=== PATIENT | female | born 1950 | race Caucasian/White ===

== ENCOUNTER 2022-08-19 11:25 | Inpatient (IN) | payer MEDICARE, MEDICAID ==
[~2022-08-19] VITALS: Ht 160 cm; Wt 73.0 kg
[~2022-08-19 11:25] MED LIST: ACET-1025 PO; ADV50100 IH; AMLO2.5T2 PO; ASCO500C18 PO; BUDE10.2 INH; BUSP10TA11 PO; ESCI10TA PO; FERR325T28 PO; FLUT1BLS16; GUAI100L37 PO; HYDR-3965 PO; INSU100I78 SUBCUT; IPRA3AMP31 IH; LANTUS SQ; LIDO1ADH19 TOP; LORA-269 PO; MONT-40 PO; NITR1PAT63 TD; NYST15CR37 TOP; PANT-47 PO; PRED5TAB PO; ROFL500T7 PO; ROSU20TA2 PO; SENN-263 PO; SUCR1TAB PO; TAM50T PO
[2022-08-19] MEDS ORDERED: methylPREDNISolone sod succ 125mg/2ml vial IV ONE (11:30)
[2022-08-19 12:07] LABS: BASOPHILS % (AUTO) 0.1 % (0-1); EOSINOPHILS % (AUTO) 0 % (0-6); HEMATOCRIT 31.3 % (35.0-45.0); HEMOGLOBIN 9.5 g/dl (12.0-16.0); LYMPHOCYTES # (AUTO) 0.2 X10'3 (1.1-4.8); LYMPHOCYTES % (AUTO) 1.9 % (21-51); MEAN CORPUSCULAR HEMOGLOBIN 23.7 PG (27.0-31.0); MEAN CORPUSCULAR HGB CONC 30.5 g/dL (33.0-36.5); MEAN CORPUSCULAR VOLUME 77.9 FL (78-98); MONOCYTES # (AUTO) 0.1 X10'3 (0-0.9); NEUTROPHILS # (AUTO) 11.6 X10'3 (1.8-7.7); PLATELET COUNT 388 X10'3 (140-440); RED BLOOD COUNT 4.01 X10'6 (4.20-5.60); RED CELL DISTRIBUTION WIDTH 18.4 % (11.5-14.5)
[2022-08-19 12:20] LABS: ALANINE AMINOTRANSFERASE 22 U/L (12-78); ALBUMIN 2.6 G/DL (3.4-5.0); ALBUMIN/GLOBULIN RATIO 0.6 (1.1-1.5); ALKALINE PHOSPHATASE 93 IU/L (46-116); ANION GAP 5 (8-16); ASPARTATE AMINO TRANSFERASE 13 U/L (10-37); BILIRUBIN,TOTAL 0.3 MG/DL (0.1-1.0); BLOOD UREA NITROGEN 22 MG/DL (7-18); BUN/CREATININE RATIO 25.6 (10.0-20.0); CALCIUM 9.1 MG/DL (8.5-10.1); CHLORIDE 98 MMOL/L (99-107); CREATININE 0.86 MG/DL (0.40-0.90); GLUCOSE 185 MG/DL (70-104); SODIUM 140 MMOL/L (135-145); TOTAL CARBON DIOXIDE 37.3 MMOL/L (24-32); eGFR 65 ML/MIN
[2022-08-19 12:26] LABS: POTASSIUM 2.9 MMOL/L (3.5-5.1)
[2022-08-19 13:34] LABS: ABG BASE EXCESS 9.9 mmol/L (-2.0-2.0); ABG HCO3 35.9 mmol/L (22.0-26.0); ABG OXYGEN SATURATION 90.7 % (94-97); ABG PCO2 (T) 57.7 mmHg (32.0-45.0); ABG PO2 (T) 62.6 mmHg (75.0-100.0); ALLEN'S TEST POSITIVE; FCOHb 0.9 % (0.0-3.9); FLOW 65 L/min; FMetHb 0.3 % (0.0-1.5); FO2Hb 89.6 % (94-97); PATIENT TEMPERATURE 37.6; TOTAL HEMOGLOBIN 10.6 G/dl (12.0-16.0)
[2022-08-19] MEDS ORDERED: ondansetron/PF 4mg/2ml inj IV PRN (14:50)
[2022-08-19] MEDS ORDERED: magnesium hydroxide 30ml (MOM) UD suspension PO PRN (14:50)
[2022-08-19] MEDS ORDERED: acetaminophen 325mg tablet PO PRN (14:50)
[2022-08-19] MEDS ORDERED: magnesium Cl slow-release 64mg tablet PO PRN (14:50)
[2022-08-19] MEDS ORDERED: magnesium 2GM in 50ml NS 50 ML IV PRN (14:50)
[2022-08-19] MEDS ORDERED: potassium Cl 40MEQ/1/2NS 520ml 520 ML IV PRN (14:50)
[2022-08-19] MEDS ORDERED: magnesium 4gm in 100ml NS 100 ML IV PRN (14:50)
[2022-08-19] MEDS ORDERED: mag hydrox/Alum hydrox/simeth 30ml oral suspension PO PRN (14:50)
[2022-08-19] MEDS: potassium Cl 20 mEq SR tablet PO PRN ×2 (15:04→22:30)
[2022-08-19] MEDS ORDERED: MELA3TAB39 PO (15:06)
[2022-08-19] MEDS ORDERED: POTA-207 PO (15:06)
[2022-08-19] MEDS ORDERED: ESCI-8 PO (15:06)
[2022-08-19] MEDS ORDERED: HYDR-3927 PO (15:06)
[2022-08-19] MEDS ORDERED: LISI40TA13 PO (15:06)
[2022-08-19] MEDS ORDERED: AMLO5TAB PO (15:06)
[2022-08-19] MEDS ORDERED: FURO40TA4 PO (15:06)
[2022-08-19] MEDS ORDERED: CHOL500050 PO (15:06)
[2022-08-19] MEDS ORDERED: PRED10TA PO (15:06)
[2022-08-19] MEDS: levoFLOXACIN-Levaquin 500mg/D5 100 ML IV SCH (15:06)
[2022-08-19] MEDS ORDERED: ALBU18HF2 PO (15:06)
[2022-08-19] MEDS ORDERED: OXYB-58 PO (15:06)
[2022-08-19] MEDS ORDERED: LORA-268 PO (15:06)
[2022-08-19] MEDS ORDERED: LORA10TA7 PO (15:06)
[2022-08-19] MEDS ORDERED: DAPA10TA PO (15:07)
--- NOTE | 2022-08-19 15:59 | NUR ---
pt given snack and phone - denies additional needs at this time.
[2022-08-19] MEDS: ipratropium/albuterol 3ml nebule NEB SCH ×3 (16:21→23:25)
--- NOTE | 2022-08-19 17:32 | NUR ---
LATHA BAKER AT BEDSIDE
--- NOTE | 2022-08-19 18:07 | NUR ---
pt eating dinner
[2022-08-19 18:19] LABS: HEMOGLOBIN A1C 6.2 % (4.5-6.2)
--- NOTE | 2022-08-19 19:10 | NUR ---
attempted to call report to floor nurse, nurse unavailable will call in 5-10 minutes
[2022-08-19] MEDS ORDERED: guaiFENesin 200 MG/10 ML oral syrup UD cup PO PRN (20:00)
[2022-08-19] MEDS ORDERED: non-formulary drug (Budesonide/Formoterol Fumarate (Symbicort 160-4.5 Mcg Inhaler) 2 PUFFS INH SCH (20:00)
[2022-08-19] MEDS ORDERED: sennosides 8.6mg tablet PO PRN (20:00)
[2022-08-19] MEDS ORDERED: ipratropium/albuterol 3ml nebule IH PRN (20:00)
[2022-08-19] MEDS ORDERED: LORazepam 0.5 MG tablet PO PRN (20:00)
[2022-08-19] MEDS ORDERED: HYDROcodone/acetaminophen 5mg/325mg tablet PO PRN (20:00)
[2022-08-19] MEDS: K and/or MAG REPLACEMENT MC SCH (20:00)
[2022-08-19] MEDS ORDERED: non-formulary drug (Acetaminophen (Tylenol Extra Strength) 1 TAB) PO PRN (20:00)
[2022-08-19] MEDS ORDERED: hydrOXYzine 25 MG tablet PO PRN (20:00)
[2022-08-19] MEDS ORDERED: PERFLUTREN PROTEIN-A MICROSPHR (Optison) 0.22 MG/ML 3ML VIAL IV ONE (20:05)
[2022-08-19] MEDS ORDERED: insulin glargine (Lantus) pen - multi-dose SQ SCH (21:00)
[2022-08-19] MEDS: furosemide 10 MG/1 ML 10ml inj IV SCH (22:28)
[2022-08-19] MEDS: ascorbic acid 500mg tablet PO SCH (22:29)
[2022-08-19] MEDS: methylPREDNISolone sod succ 125mg/2ml vial IV SCH (22:29)
[2022-08-19] MEDS: docusate sod 100mg capsule PO SCH (22:29)
[2022-08-19] MEDS: sucralfate 1 gm tablet PO SCH (22:29)
[2022-08-19] MEDS: ferrous sulfate 325mg tablet PO SCH (22:29)
[2022-08-19] MEDS: busPIRone 5mg tablet PO SCH (22:29)
[2022-08-19] MEDS: flecainide 50mg tablet PO SCH (22:40)
[2022-08-20] VITALS (7 sets, daily range): BP systolic 91–126; BP diastolic 42–67
[2022-08-20] MEDS ORDERED: albuterol 2.5 MG/3 ML nebule NEB SCH (02:00)
[2022-08-20] MEDS: ipratropium/albuterol 3ml nebule NEB SCH ×6 (02:05→23:00)
[2022-08-20 02:14] LABS: BASOPHILS # (AUTO) 0.1 X10'3 (0-0.2); BASOPHILS % (AUTO) 0.8 % (0-1); EOSINOPHILS % (AUTO) 0 % (0-6); HEMATOCRIT 30.5 % (35.0-45.0); HEMOGLOBIN 9.3 g/dl (12.0-16.0); LYMPHOCYTES # (AUTO) 0.5 X10'3 (1.1-4.8); LYMPHOCYTES % (AUTO) 3.2 % (21-51); MEAN CORPUSCULAR HGB CONC 30.6 g/dL (33.0-36.5); MEAN CORPUSCULAR VOLUME 78.3 FL (78-98); MEAN PLATELET VOLUME 6.8 FL (7.4-10.4); MONOCYTES # (AUTO) 0.6 X10'3 (0-0.9); MONOCYTES % (AUTO) 3.9 % (2-12); NEUTROPHILS # (AUTO) 14.1 X10'3 (1.8-7.7); NEUTROPHILS % (AUTO) 92.1 % (42-75); PLATELET COUNT 387 X10'3 (140-440); RED BLOOD COUNT 3.89 X10'6 (4.20-5.60); RED CELL DISTRIBUTION WIDTH 18.2 % (11.5-14.5); WHITE BLOOD COUNT 15.3 X10'3 (4.5-11.0)
--- NOTE | 2022-08-20 02:22 | NUR ---
found patient short of breath, o2 module was alarming cannot reach target flow, O2 sat 71%, rapid response called, repositioned patient, adjusted High flow nc in nose, O sats came up to 94-95 %f after a about 2 minutes. patient placed on continuous oximetry
[2022-08-20 02:23] LABS: ALBUMIN 2.6 G/DL (3.4-5.0); ANION GAP 0 (8-16); BLOOD UREA NITROGEN 31 MG/DL (7-18); BUN/CREATININE RATIO 39.7 (10.0-20.0); CALCIUM 9.2 MG/DL (8.5-10.1); CHLORIDE 99 MMOL/L (99-107); CREATININE 0.78 MG/DL (0.40-0.90); GLUCOSE 171 MG/DL (70-104); MAGNESIUM 2.3 MG/DL (1.5-2.4); POTASSIUM 3.2 MMOL/L (3.5-5.1); SODIUM 142 MMOL/L (135-145); eGFR 73 ML/MIN
[2022-08-20 02:24] LABS: TOTAL CARBON DIOXIDE 42.6 MMOL/L (24-32)
--- NOTE | 2022-08-20 02:39 | NUR ---
co2 came back at 42.6%, Dr. Lee notified.
[2022-08-20] MEDS: potassium Cl 20 mEq SR tablet PO PRN ×4 (03:51→17:14)
[2022-08-20] MEDS: methylPREDNISolone sod succ 125mg/2ml vial IV SCH ×4 (03:51→19:29)
--- NOTE | 2022-08-20 05:50 | NUR ---
Patient refuses to wear scd's.
--- NOTE | 2022-08-20 06:24 | NUR ---
Patient report given, questions answered & plan of care reviewed with SAMUEL Danielle
[2022-08-20] MEDS: budesonide 0.5mg/2ml UD nebule IH SCH ×2 (07:19→20:58)
[2022-08-20] MEDS: ROSUVASTATIN CALCIUM 5 MG TABLET PO SCH (08:00)
[2022-08-20] MEDS: nitroGLYCERIN 0.2mg/hour patch TD SCH (08:00)
[2022-08-20] MEDS: ROFLUMILAST 250 MG PO SCH (08:00)
[2022-08-20] MEDS: K and/or MAG REPLACEMENT MC SCH ×2 (08:00→19:34)
[2022-08-20] MEDS: sucralfate 1 gm tablet PO SCH ×4 (08:00→21:11)
[2022-08-20] MEDS: docusate sod 100mg capsule PO SCH ×2 (08:00→19:34)
--- NOTE | 2022-08-20 08:58 | NUR ---
Patient in room [facility] 3013. I have received report from Lolis BAKER and had the opportunity to ask questions and assume patient care. Addendum: 08/20/22 at 0858 by Angie Escobar RN Amended: Links added.
[2022-08-20] MEDS: levoFLOXACIN-Levaquin 500mg/D5 100 ML IV SCH (09:34)
[2022-08-20] MEDS: furosemide 10 MG/1 ML 10ml inj IV SCH ×2 (09:34→19:41)
[2022-08-20] MEDS: flecainide 50mg tablet PO SCH ×2 (10:08→19:28)
[2022-08-20] MEDS: pantoprazole 40mg Tablet.DR PO SCH (10:08)
[2022-08-20] MEDS: ferrous sulfate 325mg tablet PO SCH ×2 (10:09→19:28)
[2022-08-20] MEDS: busPIRone 5mg tablet PO SCH ×3 (10:09→21:11)
[2022-08-20] MEDS: loratadine 10mg tablet PO SCH (10:09)
[2022-08-20] MEDS: montelukast 10mg tablet PO SCH (10:10)
[2022-08-20] MEDS: ascorbic acid 500mg tablet PO SCH ×2 (10:11→19:28)
[2022-08-20] MEDS: cholecalciferol (vitamin D3) 1,000 unit (25mcg) tablet PO SCH (10:11)
[2022-08-20 10:12] LABS: ABG BASE EXCESS 17.8 mmol/L (-2.0-2.0); ABG HCO3 44.5 mmol/L (22.0-26.0); ABG OXYGEN SATURATION 95.5 % (94-97); ABG PCO2 (T) 64.8 mmHg (32.0-45.0); ALLEN'S TEST POSITIVE; FCOHb 0.3 % (0.0-3.9); FLOW 40 L/min; FMetHb 0.2 % (0.0-1.5); TOTAL HEMOGLOBIN 10.8 G/dl (12.0-16.0)
[2022-08-20] MEDS: ESCITALOPRAM OXALATE 5 MG TABLET PO SCH (10:12)
[2022-08-20] MEDS: oxybutynin 5mg tablet PO SCH (10:12)
[2022-08-20] MEDS: lisinopril 20mg tablet PO SCH (12:01)
[2022-08-20] MEDS: amLODIPine 5mg tablet PO SCH (12:02)
--- NOTE | 2022-08-20 12:40 | NUR ---
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 Pt reports 24-33 pounds wt loss per RN Malnutrition Screen; pending scaled wt this admit w/ no prior scaled wt hx in EMR. Pt seen by RD at bedside; pt is poor historian unsure of UBW reports possibly ~160 pounds which is current reported wt in EMR. Pt unsure if wt loss and unable to provide concrete hx of decreased intake INVOICE CLERK during RD visit. Pt PO 100% first documented heart healthy meal this AM, no edema/wounds, and no visible signs of wasting evident during RD visit. Lacks minimum malnutrition criteria at this time. Pt does request chocolate Ensure during RD visit; RD notified RN recommends chocolate Ensure High Protein once daily if MD agreeable given initial PO acceptance-pending orders in EMR. Pt does report dislikes milk to drink, peas, and prefers sodas BIDLD; dietary notified. Will monitor for further malnutrition criteria this admit. Addendum: 08/20/22 at [address] Amended: Links added. 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 Pt reports 24-33 pounds wt loss per RN Malnutrition Screen; pending scaled wt this admit w/ no prior scaled wt hx in EMR. Pt seen by RD at bedside; pt is poor historian unsure of UBW reports possibly ~160 pounds which is current reported wt in EMR. Pt unsure if wt loss and unable to provide concrete hx of decreased intake INVOICE CLERK during RD visit. Pt PO 100% first documented heart healthy meal this AM, no edema/wounds, and no visible signs of wasting evident during RD visit. Lacks minimum malnutrition criteria at this time. Pt does request chocolate Ensure during RD visit; RD notified RN recommends chocolate Ensure High Protein once daily if MD agreeable given initial PO acceptance-pending orders in EMR. Pt does report dislikes milk to drink, peas, and prefers sodas BIDLD; dietary notified. Will monitor for further malnutrition criteria this admit. Rec: 1. continue heart healthy diet per MD; carb restriction not indicated given A1C 6.2% 2. Chocolate Ensure High Protein once daily if physician agreeable; frequency and ONS adjustments based on further PO trends
[2022-08-20] MEDS: DAPAGLIFLOZIN 10MG TABLET PO SCH (13:30)
[2022-08-20] MEDS ORDERED: acetaZOLAMIDE 250mg tablet PO ONE (15:20)
--- NOTE | 2022-08-20 16:58 | NUR ---
PAGER ID: [phone] MESSAGE: [phone] Rodrigo. Can I put her on DM protocol? DM2 HX. BS 180 now. Angie CAMARGO
[2022-08-20] MEDS ORDERED: dextrose 50%-water 50ml dispensing syringe IV PRN ×2 (17:20)
[2022-08-20] MEDS ORDERED: DEXTROSE 15 GM of carb/4 tabs (each vial/BOTTLE has 4 tablets) PO PRN ×2 (17:20)
[2022-08-20] MEDS ORDERED: glucagon, human recombinant 1mg kit SUBCUT PRN (17:20)
--- NOTE | 2022-08-20 18:10 | NUR ---
Problems reprioritized. Patient report given, questions answered & plan of care reviewed with Sahara BAKER. Pt eating dinner. High flow in place. 35L 55 fio2. Call light in reach. Addendum: 08/20/22 at 1840 by Angie Escobar RN Amended: Links added.
[2022-08-20] MEDS: acetaZOLAMIDE 500mg capsule.SA PO SCH (19:28)
[2022-08-20] MEDS: insulin Lispro (HumaLOG) vial - multi-dose SQ SCH (19:36)
[2022-08-20] MEDS: insulin glargine (Lantus) pen - multi-dose SQ SCH (21:18)
[2022-08-21] MEDS ORDERED: LidoCAINE 2% Topical Jelly 11mL syringe TOP ONE (00:55)
[2022-08-21] MEDS: methylPREDNISolone sod succ 125mg/2ml vial IV SCH ×4 (01:02→19:28)
[2022-08-21 02:00] VITALS: BP 108/64
[2022-08-21] MEDS: ipratropium/albuterol 3ml nebule NEB SCH ×6 (03:01→23:20)
[2022-08-21 06:00] VITALS: BP 106/75
--- NOTE | 2022-08-21 06:41 | NUR ---
Patient report given, questions answered & plan of care reviewed with SAMUEL Adams
--- NOTE | 2022-08-21 06:42 | NUR ---
Patient in room [facility] 3013. I have received report from Sahara BAKER and had the opportunity to ask questions and assume patient care.Pt awake and hungery. Call light in reach. Addendum: 08/21/22 at 0642 by Angie Escobar RN Amended: Links added.
[2022-08-21] MEDS: budesonide 0.5mg/2ml UD nebule IH SCH ×2 (07:15→18:52)
[2022-08-21] MEDS: docusate sod 100mg capsule PO SCH ×2 (08:00→19:17)
[2022-08-21] MEDS: ROFLUMILAST 250 MG PO SCH (08:00)
[2022-08-21] MEDS: K and/or MAG REPLACEMENT MC SCH ×2 (08:00→20:00)
[2022-08-21] MEDS: levoFLOXACIN-Levaquin 500mg/D5 100 ML IV SCH (08:27)
[2022-08-21] MEDS: montelukast 10mg tablet PO SCH (08:27)
[2022-08-21] MEDS: flecainide 50mg tablet PO SCH ×2 (08:28→19:28)
[2022-08-21] MEDS: pantoprazole 40mg Tablet.DR PO SCH (08:28)
[2022-08-21] MEDS: ferrous sulfate 325mg tablet PO SCH ×2 (08:29→19:28)
[2022-08-21] MEDS: sucralfate 1 gm tablet PO SCH ×4 (08:29→21:06)
[2022-08-21] MEDS: lisinopril 20mg tablet PO SCH (08:29)
[2022-08-21] MEDS: loratadine 10mg tablet PO SCH (08:29)
[2022-08-21] MEDS: busPIRone 5mg tablet PO SCH ×3 (08:29→21:06)
[2022-08-21] MEDS: ESCITALOPRAM OXALATE 5 MG TABLET PO SCH (08:30)
[2022-08-21] MEDS: oxybutynin 5mg tablet PO SCH (08:32)
[2022-08-21] MEDS: cholecalciferol (vitamin D3) 1,000 unit (25mcg) tablet PO SCH (08:33)
[2022-08-21] MEDS: ascorbic acid 500mg tablet PO SCH ×2 (08:33→19:27)
[2022-08-21] MEDS: DAPAGLIFLOZIN 10MG TABLET PO SCH (08:33)
[2022-08-21] MEDS: acetaZOLAMIDE 500mg capsule.SA PO SCH (08:34)
[2022-08-21] MEDS: ROSUVASTATIN CALCIUM 5 MG TABLET PO SCH (08:35)
[2022-08-21] MEDS: amLODIPine 5mg tablet PO SCH (08:35)
[2022-08-21] MEDS: furosemide 10 MG/1 ML 10ml inj IV SCH ×2 (08:38→19:27)
[2022-08-21] MEDS: insulin Lispro (HumaLOG) vial - multi-dose SQ SCH ×3 (08:47→19:12)
[2022-08-21 08:49] LABS: BASOPHILS % (AUTO) 0 % (0-1); EOSINOPHILS % (AUTO) 0 % (0-6); LYMPHOCYTES # (AUTO) 0.4 X10'3 (1.1-4.8); LYMPHOCYTES % (AUTO) 2.5 % (21-51); MEAN PLATELET VOLUME 7.4 FL (7.4-10.4); MONOCYTES # (AUTO) 0.4 X10'3 (0-0.9); MONOCYTES % (AUTO) 2.8 % (2-12); NEUTROPHILS # (AUTO) 13.9 X10'3 (1.8-7.7); NEUTROPHILS % (AUTO) 94.7 % (42-75); PLATELET COUNT 417 X10'3 (140-440); WHITE BLOOD COUNT 14.7 X10'3 (4.5-11.0)
[2022-08-21 08:54] LABS: ALBUMIN 2.6 G/DL (3.4-5.0); ANION GAP 3 (8-16); BLOOD UREA NITROGEN 40 MG/DL (7-18); CHLORIDE 101 MMOL/L (99-107); CREATININE 0.87 MG/DL (0.40-0.90); GLUCOSE 215 MG/DL (70-104); MAGNESIUM 2.4 MG/DL (1.5-2.4); SODIUM 143 MMOL/L (135-145); TOTAL CARBON DIOXIDE 39.4 MMOL/L (24-32); eGFR 64 ML/MIN
[2022-08-21 09:14] LABS: HEMATOCRIT 31.1 % (35.0-45.0); HEMOGLOBIN 9.9 g/dl (12.0-16.0); MEAN CORPUSCULAR HEMOGLOBIN 24.9 PG (27.0-31.0); MEAN CORPUSCULAR HGB CONC 31.7 g/dL (33.0-36.5); MEAN CORPUSCULAR VOLUME 78.5 FL (78-98); RED BLOOD COUNT 3.95 X10'6 (4.20-5.60); RED CELL DISTRIBUTION WIDTH 18.2 % (11.5-14.5)
[2022-08-21 11:00] VITALS: BP 120/75
[2022-08-21 11:46] LABS: ANISOCYTOSIS 2+; MICROCYTOSIS 1+; PLATELET ESTIMATE NORMAL
[2022-08-21 11:47] LABS: ELLIPTOCYTES 1+; HYPOCHROMASIA 1+; SCHISTOCYTES FEW
[2022-08-21] MEDS: nitroGLYCERIN 0.2mg/hour patch TD SCH (13:00)
[2022-08-21 15:00] VITALS: BP 105/54
[2022-08-21] MEDS ORDERED: ondansetron 4mg rapidly disintigrating tab PO PRN (16:15)
[2022-08-21 18:00] VITALS: BP 109/42
--- NOTE | 2022-08-21 18:18 | NUR ---
Problems reprioritized. Patient report given, questions answered & plan of care reviewed with Sahara BAKER. Pt eating dinner and watching TV. Call light in reach. Addendum: 08/21/22 at 1818 by Angie Escobar RN Amended: Links added.
--- NOTE | 2022-08-21 18:44 | NUR ---
o2 sat dropped to 80%, checked placement of high flow nc, increased o2 to 55% and elevated hob, saturation increased to 88-90 percent. paged respiratory therapy for evaluation and respiratory treatment.
[2022-08-21] MEDS: insulin glargine (Lantus) pen - multi-dose SQ SCH (21:19)
[2022-08-21 22:00] VITALS: BP 118/71
[2022-08-22] MEDS: methylPREDNISolone sod succ 125mg/2ml vial IV SCH ×4 (01:38→21:11)
[2022-08-22 02:00] VITALS: BP 117/62
[2022-08-22] MEDS: ipratropium/albuterol 3ml nebule NEB SCH ×6 (02:41→23:14)
[2022-08-22 06:00] VITALS: BP 119/63
--- NOTE | 2022-08-22 06:05 | NUR ---
Patient report given, questions answered & plan of care reviewed with SAMUEL Adams
--- NOTE | 2022-08-22 06:23 | NUR ---
Patient in room [facility] 3013. I have received report from Sahara BAKER and had the opportunity to ask questions and assume patient care. Pt awake and alert, asking, " when is breakfast". Call light in reach. HF 25L 55% fio2. Call light in reach. Addendum: 08/22/22 at 0625 by Angie Escobar RN Amended: Links added.
[2022-08-22 06:54] LABS: BASOPHILS % (AUTO) 0.2 % (0-1); EOSINOPHILS % (AUTO) 0 % (0-6); HEMOGLOBIN 9.8 g/dl (12.0-16.0); LYMPHOCYTES # (AUTO) 0.3 X10'3 (1.1-4.8); LYMPHOCYTES % (AUTO) 2.4 % (21-51); MEAN CORPUSCULAR HGB CONC 30.6 g/dL (33.0-36.5); MEAN CORPUSCULAR VOLUME 78.5 FL (78-98); MEAN PLATELET VOLUME 7.2 FL (7.4-10.4); MONOCYTES # (AUTO) 0.2 X10'3 (0-0.9); MONOCYTES % (AUTO) 2.2 % (2-12); NEUTROPHILS # (AUTO) 10.5 X10'3 (1.8-7.7); NEUTROPHILS % (AUTO) 95.2 % (42-75); PLATELET COUNT 373 X10'3 (140-440); RED BLOOD COUNT 4.08 X10'6 (4.20-5.60); RED CELL DISTRIBUTION WIDTH 18.7 % (11.5-14.5)
[2022-08-22 07:02] LABS: ALBUMIN 2.7 G/DL (3.4-5.0); ANION GAP 4 (8-16); BLOOD UREA NITROGEN 41 MG/DL (7-18); BUN/CREATININE RATIO 51.3 (10.0-20.0); CALCIUM 8.9 MG/DL (8.5-10.1); CHLORIDE 102 MMOL/L (99-107); GLUCOSE 183 MG/DL (70-104); MAGNESIUM 2.4 MG/DL (1.5-2.4); POTASSIUM 3.8 MMOL/L (3.5-5.1); SODIUM 143 MMOL/L (135-145); TOTAL CARBON DIOXIDE 37.1 MMOL/L (24-32); eGFR 71 ML/MIN
[2022-08-22] MEDS: budesonide 0.5mg/2ml UD nebule IH SCH ×2 (07:38→19:31)
[2022-08-22 07:49] LABS: HBSAG SCREEN Negative (Negative); HEP B CORE AB, TOT Negative (Negative)
[2022-08-22] MEDS: docusate sod 100mg capsule PO SCH ×2 (08:00→20:00)
[2022-08-22] MEDS: K and/or MAG REPLACEMENT MC SCH ×2 (08:00→20:00)
[2022-08-22] MEDS: acetaZOLAMIDE 500mg capsule.SA PO SCH (08:00)
[2022-08-22] MEDS: ROFLUMILAST 250 MG PO SCH (08:00)
[2022-08-22 08:26] LABS: PLATELET ESTIMATE NORMAL
[2022-08-22 08:27] LABS: ANISOCYTOSIS 2+; MICROCYTOSIS 1+; POIKILOCYTOSIS FEW
[2022-08-22] MEDS: levoFLOXACIN-Levaquin 500mg/D5 100 ML IV SCH (08:46)
[2022-08-22] MEDS: furosemide 10 MG/1 ML 10ml inj IV SCH ×2 (08:47→21:12)
[2022-08-22] MEDS: ROSUVASTATIN CALCIUM 5 MG TABLET PO SCH (08:51)
[2022-08-22] MEDS: loratadine 10mg tablet PO SCH (08:51)
[2022-08-22] MEDS: ESCITALOPRAM OXALATE 5 MG TABLET PO SCH (08:52)
[2022-08-22] MEDS: cholecalciferol (vitamin D3) 1,000 unit (25mcg) tablet PO SCH (08:53)
[2022-08-22] MEDS: lisinopril 20mg tablet PO SCH (08:54)
[2022-08-22] MEDS: flecainide 50mg tablet PO SCH ×2 (08:54→21:11)
[2022-08-22] MEDS: ascorbic acid 500mg tablet PO SCH ×2 (08:55→21:11)
[2022-08-22] MEDS: amLODIPine 5mg tablet PO SCH (08:56)
[2022-08-22] MEDS: DAPAGLIFLOZIN 10MG TABLET PO SCH (08:57)
[2022-08-22] MEDS: sucralfate 1 gm tablet PO SCH ×4 (08:57→21:10)
[2022-08-22] MEDS: busPIRone 5mg tablet PO SCH ×3 (08:57→21:10)
[2022-08-22] MEDS: montelukast 10mg tablet PO SCH (08:58)
[2022-08-22] MEDS: oxybutynin 5mg tablet PO SCH (08:58)
[2022-08-22] MEDS: pantoprazole 40mg Tablet.DR PO SCH (08:59)
[2022-08-22] MEDS: ferrous sulfate 325mg tablet PO SCH ×2 (08:59→21:11)
[2022-08-22] MEDS: nitroGLYCERIN 0.2mg/hour patch TD SCH (09:00)
[2022-08-22] MEDS: insulin Lispro (HumaLOG) vial - multi-dose SQ SCH ×3 (09:05→19:36)
[2022-08-22 11:18] VITALS: BP 106/55
[2022-08-22 15:00] VITALS: BP 104/51
[2022-08-22 18:00] VITALS: BP 98/45
--- NOTE | 2022-08-22 18:33 | NUR ---
Problems reprioritized. Patient report given, questions answered & plan of care reviewed with Shirley BAKER. Pt eating and watching TV. Call light in reach. Addendum: 08/22/22 at 1833 by Angie Escobar RN Amended: Links added.
--- NOTE | 2022-08-22 18:33 | NUR ---
Patient in room [facility] 3013. I have received report from Angie BAKER and had the opportunity to ask questions and assume patient care.
[2022-08-22 21:10] VITALS: BP 106/45
[2022-08-22] MEDS: insulin glargine (Lantus) pen - multi-dose SQ SCH (21:31)
[2022-08-22] MEDS: Melatonin 3mg tablet PO PRN (22:56)
[2022-08-23] MEDS: methylPREDNISolone sod succ 125mg/2ml vial IV SCH ×4 (02:12→19:35)
[2022-08-23 02:18] VITALS: BP 109/54
[2022-08-23] MEDS: ipratropium/albuterol 3ml nebule NEB SCH ×6 (03:39→23:08)
--- NOTE | 2022-08-23 06:18 | NUR ---
Problems reprioritized. Patient report given, questions answered & plan of care reviewed with Dorothy BAKER. Addendum: 08/23/22 at 0618 by Shirley Mena RN Amended: Links added.
[2022-08-23 06:30] VITALS: BP 117/47
--- NOTE | 2022-08-23 06:30 | NUR ---
Patient in room [facility] 3013. I have received report from Shirley BAKER and orientlilibeth and had the opportunity to ask questions and assume patient care.
[2022-08-23 07:09] LABS: BASOPHILS % (AUTO) 0.2 % (0-1); EOSINOPHILS % (AUTO) 0 % (0-6); HEMOGLOBIN 10.2 g/dl (12.0-16.0); LYMPHOCYTES # (AUTO) 0.2 X10'3 (1.1-4.8); LYMPHOCYTES % (AUTO) 1.8 % (21-51); MEAN CORPUSCULAR HEMOGLOBIN 23.9 PG (27.0-31.0); MEAN CORPUSCULAR HGB CONC 30.7 g/dL (33.0-36.5); MEAN CORPUSCULAR VOLUME 77.7 FL (78-98); MONOCYTES # (AUTO) 0.2 X10'3 (0-0.9); MONOCYTES % (AUTO) 2.1 % (2-12); NEUTROPHILS # (AUTO) 9.1 X10'3 (1.8-7.7); NEUTROPHILS % (AUTO) 95.9 % (42-75); PLATELET COUNT 370 X10'3 (140-440); RED BLOOD COUNT 4.25 X10'6 (4.20-5.60); RED CELL DISTRIBUTION WIDTH 18.2 % (11.5-14.5); WHITE BLOOD COUNT 9.5 X10'3 (4.5-11.0)
[2022-08-23 07:20] LABS: ALBUMIN 2.6 G/DL (3.4-5.0); ANION GAP 7 (8-16); BLOOD UREA NITROGEN 40 MG/DL (7-18); BUN/CREATININE RATIO 46.5 (10.0-20.0); CALCIUM 8.5 MG/DL (8.5-10.1); CHLORIDE 101 MMOL/L (99-107); CREATININE 0.86 MG/DL (0.40-0.90); GLUCOSE 174 MG/DL (70-104); MAGNESIUM 2.4 MG/DL (1.5-2.4); SODIUM 145 MMOL/L (135-145); TOTAL CARBON DIOXIDE 36.9 MMOL/L (24-32); eGFR 65 ML/MIN
[2022-08-23 07:24] LABS: POTASSIUM 2.9 MMOL/L (3.5-5.1)
[2022-08-23] MEDS: budesonide 0.5mg/2ml UD nebule IH SCH ×2 (07:33→19:14)
[2022-08-23] MEDS ORDERED: magnesium Cl slow-release 64mg tablet PO PRN (07:40)
[2022-08-23] MEDS ORDERED: potassium Cl 40MEQ/1/2NS 520ml 520 ML IV PRN (07:40)
[2022-08-23] MEDS ORDERED: potassium Cl 20 mEq SR tablet PO PRN (07:40)
[2022-08-23] MEDS ORDERED: magnesium 2GM in 50ml NS 50 ML IV PRN (07:40)
[2022-08-23] MEDS ORDERED: magnesium 4gm in 100ml NS 100 ML IV PRN (07:40)
[2022-08-23] MEDS: ROFLUMILAST 250 MG PO SCH (08:00)
[2022-08-23] MEDS: K and/or MAG REPLACEMENT MC SCH ×2 (08:00→20:00)
[2022-08-23] MEDS: cholecalciferol (vitamin D3) 1,000 unit (25mcg) tablet PO SCH (08:13)
[2022-08-23] MEDS: ROSUVASTATIN CALCIUM 5 MG TABLET PO SCH (08:13)
[2022-08-23] MEDS: potassium Cl 20 mEq SR tablet PO PRN ×3 (08:14→17:44)
[2022-08-23] MEDS: amLODIPine 5mg tablet PO SCH (08:14)
[2022-08-23] MEDS: docusate sod 100mg capsule PO SCH ×2 (08:15→19:44)
[2022-08-23] MEDS: ESCITALOPRAM OXALATE 5 MG TABLET PO SCH (08:15)
[2022-08-23] MEDS: levoFLOXACIN 500mg tablet PO SCH (08:15)
[2022-08-23] MEDS: lisinopril 20mg tablet PO SCH (08:15)
[2022-08-23] MEDS: ascorbic acid 500mg tablet PO SCH ×2 (08:15→19:32)
[2022-08-23] MEDS: loratadine 10mg tablet PO SCH (08:15)
[2022-08-23] MEDS: ferrous sulfate 325mg tablet PO SCH ×2 (08:15→19:32)
[2022-08-23] MEDS: oxybutynin 5mg tablet PO SCH (08:15)
[2022-08-23] MEDS: montelukast 10mg tablet PO SCH (08:15)
[2022-08-23] MEDS: DAPAGLIFLOZIN 10MG TABLET PO SCH (08:15)
[2022-08-23] MEDS: busPIRone 5mg tablet PO SCH ×3 (08:15→22:25)
[2022-08-23] MEDS: flecainide 50mg tablet PO SCH ×2 (08:15→19:32)
[2022-08-23] MEDS: sucralfate 1 gm tablet PO SCH ×4 (08:15→22:26)
[2022-08-23] MEDS: pantoprazole 40mg Tablet.DR PO SCH (08:15)
[2022-08-23] MEDS: furosemide 10 MG/1 ML 10ml inj IV SCH ×3 (08:16→19:50)
[2022-08-23] MEDS: nitroGLYCERIN 0.2mg/hour patch TD SCH (08:23)
[2022-08-23] MEDS: insulin Lispro (HumaLOG) vial - multi-dose SQ SCH ×2 (09:29→17:58)
[2022-08-23 11:00] VITALS: BP 102/45
[2022-08-23 15:00] VITALS: BP 98/62
[2022-08-23 18:00] VITALS: BP 123/47
[2022-08-23] MEDS: insulin glargine (Lantus) pen - multi-dose SQ SCH (21:00)
[2022-08-23 22:00] VITALS: BP 116/81
[2022-08-23] MEDS: Melatonin 3mg tablet PO PRN (22:48)
[2022-08-24 02:00] VITALS: BP_SYST 111; BP_SYST 138; BP_DIAS 61; BP_DIAS 68
[2022-08-24] MEDS: ipratropium/albuterol 3ml nebule NEB SCH ×6 (02:49→23:22)
[2022-08-24] MEDS: methylPREDNISolone sod succ 125mg/2ml vial IV SCH ×4 (04:02→19:52)
--- NOTE | 2022-08-24 06:11 | NUR ---
Problems reprioritized. Patient report given, questions answered & plan of care reviewed with Dorothy BAKER. Pt was stable at shift change.
[2022-08-24 06:29] LABS: BASOPHILS % (AUTO) 0 % (0-1); EOSINOPHILS % (AUTO) 0 % (0-6); HEMATOCRIT 33.4 % (35.0-45.0); HEMOGLOBIN 10.3 g/dl (12.0-16.0); LYMPHOCYTES # (AUTO) 0.2 X10'3 (1.1-4.8); LYMPHOCYTES % (AUTO) 1.9 % (21-51); MEAN CORPUSCULAR HGB CONC 30.9 g/dL (33.0-36.5); MEAN CORPUSCULAR VOLUME 77.6 FL (78-98); MONOCYTES # (AUTO) 0.5 X10'3 (0-0.9); MONOCYTES % (AUTO) 4.4 % (2-12); NEUTROPHILS % (AUTO) 93.7 % (42-75); PLATELET COUNT 355 X10'3 (140-440); RED BLOOD COUNT 4.31 X10'6 (4.20-5.60); RED CELL DISTRIBUTION WIDTH 18.6 % (11.5-14.5); WHITE BLOOD COUNT 11.8 X10'3 (4.5-11.0)
[2022-08-24 06:30] VITALS: BP 106/81
[2022-08-24 06:47] LABS: ALBUMIN 2.7 G/DL (3.4-5.0); ANION GAP 7 (8-16); BLOOD UREA NITROGEN 46 MG/DL (7-18); BUN/CREATININE RATIO 52.3 (10.0-20.0); CALCIUM 8.6 MG/DL (8.5-10.1); CHLORIDE 101 MMOL/L (99-107); CREATININE 0.88 MG/DL (0.40-0.90); GLUCOSE 177 MG/DL (70-104); POTASSIUM 3.8 MMOL/L (3.5-5.1); SODIUM 142 MMOL/L (135-145); TOTAL CARBON DIOXIDE 34.3 MMOL/L (24-32); eGFR 64 ML/MIN
[2022-08-24] MEDS: budesonide 0.5mg/2ml UD nebule IH SCH ×2 (07:06→19:38)
[2022-08-24] MEDS: ROSUVASTATIN CALCIUM 5 MG TABLET PO SCH (07:39)
[2022-08-24] MEDS: sucralfate 1 gm tablet PO SCH ×4 (07:40→21:27)
[2022-08-24] MEDS: loratadine 10mg tablet PO SCH (07:40)
[2022-08-24] MEDS: pantoprazole 40mg Tablet.DR PO SCH (07:40)
[2022-08-24] MEDS: ESCITALOPRAM OXALATE 5 MG TABLET PO SCH (07:40)
[2022-08-24] MEDS: flecainide 50mg tablet PO SCH ×2 (07:41→19:51)
[2022-08-24] MEDS: cholecalciferol (vitamin D3) 1,000 unit (25mcg) tablet PO SCH (07:41)
[2022-08-24] MEDS: levoFLOXACIN 500mg tablet PO SCH (07:41)
[2022-08-24] MEDS: oxybutynin 5mg tablet PO SCH (07:41)
[2022-08-24] MEDS: montelukast 10mg tablet PO SCH (07:41)
[2022-08-24] MEDS: busPIRone 5mg tablet PO SCH ×3 (07:41→21:27)
[2022-08-24] MEDS: ferrous sulfate 325mg tablet PO SCH ×2 (07:41→19:51)
[2022-08-24] MEDS: DAPAGLIFLOZIN 10MG TABLET PO SCH (07:41)
[2022-08-24] MEDS: ascorbic acid 500mg tablet PO SCH ×2 (07:41→19:51)
[2022-08-24] MEDS: furosemide 10 MG/1 ML 10ml inj IV SCH ×2 (07:42→19:53)
[2022-08-24] MEDS: nitroGLYCERIN 0.2mg/hour patch TD SCH (07:42)
[2022-08-24] MEDS: docusate sod 100mg capsule PO SCH ×2 (07:49→19:54)
[2022-08-24] MEDS: ROFLUMILAST 250 MG PO SCH (07:50)
[2022-08-24] MEDS: amLODIPine 5mg tablet PO SCH (07:50)
[2022-08-24] MEDS: lisinopril 20mg tablet PO SCH (07:50)
[2022-08-24] MEDS: K and/or MAG REPLACEMENT MC SCH ×2 (08:00→19:53)
[2022-08-24 08:27] LABS: ANISOCYTOSIS 2+; MICROCYTOSIS 1+; PLATELET ESTIMATE NORMAL
[2022-08-24 08:28] LABS: LARGE PLATELETS FEW
[2022-08-24] MEDS: insulin Lispro (HumaLOG) vial - multi-dose SQ SCH ×2 (08:38→19:48)
[2022-08-24] MEDS ORDERED: albuterol 2.5 MG/3 ML nebule NEB PRN (08:45)
[2022-08-24 11:05] VITALS: BP 104/69
--- NOTE | 2022-08-24 14:06 | NUR ---
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 Pt PO ~85% avg carb controlled/heart healthy meals meeting 100% kcal and ~95% protein estimated needs. RASHAWN has d/w pt ONS options for protein on initial visit which pt requests ONS and RD had recommended once daily chocolate Ensure High Protein. No ONS orders in EMR yet at this time; RASHAWN d/w RN regarding daily chocolate Ensure High Protein per pt preference if DO agreeable. LBM 7/. No nutrition concerns at this time. Will continue to follow. Rec: 1. continue heart healthy diet per MD; carb restriction not indicated given A1C 6.2% 2. Chocolate Ensure High Protein once daily if physician agreeable; pt requested ONS 3. routine bowel care 4. scaled wt this admit; subsequent daily scaled wt Addendum: 08/24/22 at [address] Amended: Links added.
[2022-08-24 15:00] VITALS: BP 112/53
--- NOTE | 2022-08-24 16:15 | NUR ---
Paged Dr Gongora "PAGER ID: [phone] MESSAGE: [phone] Ángela Wallace there is a CD from [place] where the patient was transferred from with a CTA. Do you still want the CT of the chest with contrast" Addendum: 08/24/22 at 1618 by Dorothy Fernandez RN Received mey Addendum: 08/24/22 at 1619 by Dorothy Fernandez RN received order to DC CT. CTA of chest was done in [place]. Negative for PE.
[2022-08-24 18:00] VITALS: BP 135/69
--- NOTE | 2022-08-24 18:31 | NUR ---
Problems reprioritized. Patient report given, questions answered & plan of care reviewed with Makeda BAKER.
[2022-08-24] MEDS: insulin glargine (Lantus) pen - multi-dose SQ SCH (21:33)
[2022-08-24 22:00] VITALS: BP 92/50
[2022-08-24] MEDS: Melatonin 3mg tablet PO PRN (23:13)
[2022-08-25] MEDS: methylPREDNISolone sod succ 125mg/2ml vial IV SCH ×4 (02:12→20:00)
--- NOTE | 2022-08-25 02:22 | NUR ---
paged respiratory d/t pt feeling liek she couldnt breath. nurse placed O2 oxymeter on pt, O2 saturation was 88%, nurse had pt breath in through nose and out through pursed lips, nurse also asked if pt felt congested. Pt stated "yes." nurse asked pt if she wanted the flutter valve from off her table. Pt declined flutter valve, nurse educated about IS, pt declined the IS as well. Nurse reeducated pt to flutter valve and IS help the lungs. RT came to give treatment to pt.
[2022-08-25 03:46] VITALS: BP 98/55
[2022-08-25] MEDS: ipratropium/albuterol 3ml nebule NEB SCH ×6 (03:47→23:37)
[2022-08-25 06:00] VITALS: BP 106/52
--- NOTE | 2022-08-25 06:18 | NUR ---
Problems reprioritized. Patient report given, questions answered & plan of care reviewed with Mirian BAKER. Pt stable at shift change.
--- NOTE | 2022-08-25 06:25 | NUR ---
Patient in room [facility] 3013. I have received report from Makeda BAKER and had the opportunity to ask questions and assume patient care.
[2022-08-25] MEDS: budesonide 0.5mg/2ml UD nebule IH SCH ×2 (07:25→19:18)
[2022-08-25] MEDS: furosemide 10 MG/1 ML 10ml inj IV SCH ×2 (07:55→20:00)
[2022-08-25] MEDS: ROSUVASTATIN CALCIUM 5 MG TABLET PO SCH (07:55)
[2022-08-25] MEDS: ESCITALOPRAM OXALATE 5 MG TABLET PO SCH (07:55)
[2022-08-25] MEDS: cholecalciferol (vitamin D3) 1,000 unit (25mcg) tablet PO SCH (07:56)
[2022-08-25] MEDS: pantoprazole 40mg Tablet.DR PO SCH (07:56)
[2022-08-25] MEDS: DAPAGLIFLOZIN 10MG TABLET PO SCH (07:56)
[2022-08-25] MEDS: flecainide 50mg tablet PO SCH ×2 (07:56→19:35)
[2022-08-25] MEDS: busPIRone 5mg tablet PO SCH ×3 (07:57→22:14)
[2022-08-25] MEDS: loratadine 10mg tablet PO SCH (07:57)
[2022-08-25] MEDS: amLODIPine 5mg tablet PO SCH (07:57)
[2022-08-25] MEDS: levoFLOXACIN 500mg tablet PO SCH (07:57)
[2022-08-25] MEDS: ferrous sulfate 325mg tablet PO SCH ×2 (07:57→19:34)
[2022-08-25] MEDS: lisinopril 20mg tablet PO SCH (07:57)
[2022-08-25] MEDS: sucralfate 1 gm tablet PO SCH ×3 (07:58→22:14)
[2022-08-25] MEDS: ascorbic acid 500mg tablet PO SCH ×2 (07:58→19:34)
[2022-08-25] MEDS: oxybutynin 5mg tablet PO SCH (07:58)
[2022-08-25] MEDS: montelukast 10mg tablet PO SCH (07:58)
[2022-08-25] MEDS: nitroGLYCERIN 0.2mg/hour patch TD SCH (07:59)
[2022-08-25] MEDS: K and/or MAG REPLACEMENT MC SCH ×2 (08:00→20:00)
[2022-08-25] MEDS: docusate sod 100mg capsule PO SCH ×2 (08:00→20:00)
[2022-08-25] MEDS: ROFLUMILAST 250 MG PO SCH (08:00)
[2022-08-25] MEDS: insulin Lispro (HumaLOG) vial - multi-dose SQ SCH ×2 (08:36→19:42)
[2022-08-25 11:00] VITALS: BP 104/59
[2022-08-25 15:00] VITALS: BP 121/59
--- NOTE | 2022-08-25 15:48 | NUR ---
PAGER ID: [phone] MESSAGE: [id number], Rodrigo Motta. Are we discharging this patient? Mirian [facility] [id number]
--- NOTE | 2022-08-25 15:59 | NUR ---
PAGER ID: [phone] MESSAGE: [id number], Rodrigo Motta. Pt said she doesn't know if her son is coming or not, due to car issues. So it is probably safe to say she will stay tonight. Mirian [facility] [id number].
[2022-08-25 18:00] VITALS: BP 112/55
--- NOTE | 2022-08-25 19:19 | NUR ---
Pt refusing IV placement, Pt educated to risks of having not IV in place while in the hopsital, MD notified.
[2022-08-25] MEDS: insulin glargine (Lantus) pen - multi-dose SQ SCH (21:00)
[2022-08-25 22:00] VITALS: BP 117/58
[2022-08-25] MEDS: Melatonin 3mg tablet PO PRN (22:14)
[2022-08-26] MEDS: methylPREDNISolone sod succ 125mg/2ml vial IV SCH ×2 (02:00→08:00)
[2022-08-26] MEDS: ipratropium/albuterol 3ml nebule NEB SCH ×4 (02:19→15:56)
[2022-08-26 02:24] VITALS: BP 106/60
[2022-08-26 06:00] VITALS: BP 115/46
[2022-08-26] MEDS: budesonide 0.5mg/2ml UD nebule IH SCH (06:59)
--- NOTE | 2022-08-26 07:22 | NUR ---
Problems reprioritized. Patient report given, questions answered & plan of care reviewed with Mirian BAKER. Pt stable at shift change.
[2022-08-26] MEDS: furosemide 10 MG/1 ML 10ml inj IV SCH (08:00)
[2022-08-26] MEDS: ROFLUMILAST 250 MG PO SCH (08:00)
[2022-08-26] MEDS: docusate sod 100mg capsule PO SCH (08:00)
[2022-08-26] MEDS: K and/or MAG REPLACEMENT MC SCH (08:00)
[2022-08-26] MEDS ORDERED: LEVO250T74 PO (08:57)
[2022-08-26] MEDS ORDERED: PRED10TA23 PO (08:57)
[2022-08-26] MEDS: amLODIPine 5mg tablet PO SCH (09:10)
[2022-08-26] MEDS: ROSUVASTATIN CALCIUM 5 MG TABLET PO SCH (09:10)
[2022-08-26] MEDS: ESCITALOPRAM OXALATE 5 MG TABLET PO SCH (09:11)
[2022-08-26] MEDS: flecainide 50mg tablet PO SCH (09:11)
[2022-08-26] MEDS: ascorbic acid 500mg tablet PO SCH (09:11)
[2022-08-26] MEDS: DAPAGLIFLOZIN 10MG TABLET PO SCH (09:11)
[2022-08-26] MEDS: busPIRone 5mg tablet PO SCH ×2 (09:12→13:44)
[2022-08-26] MEDS: ferrous sulfate 325mg tablet PO SCH (09:12)
[2022-08-26] MEDS: oxybutynin 5mg tablet PO SCH (09:12)
[2022-08-26] MEDS: pantoprazole 40mg Tablet.DR PO SCH (09:12)
[2022-08-26] MEDS: loratadine 10mg tablet PO SCH (09:12)
[2022-08-26] MEDS: cholecalciferol (vitamin D3) 1,000 unit (25mcg) tablet PO SCH (09:12)
[2022-08-26] MEDS: lisinopril 20mg tablet PO SCH (09:13)
[2022-08-26] MEDS: montelukast 10mg tablet PO SCH (09:13)
[2022-08-26] MEDS: nitroGLYCERIN 0.2mg/hour patch TD SCH (09:13)
[2022-08-26] MEDS: sucralfate 1 gm tablet PO SCH ×3 (09:13→17:00)
[2022-08-26 11:00] VITALS: BP 102/49
[2022-08-26] MEDS ORDERED: levoFLOXACIN 250mg tablet PO SCH (11:00)
[2022-08-26] MEDS ORDERED: furosemide 40mg tablet PO SCH (11:15)
[2022-08-26] MEDS ORDERED: prednisone 10mg tablet PO SCH (11:15)
--- NOTE | 2022-08-26 18:49 | NUR ---
Problems reprioritized. Patient report given, questions answered & plan of care reviewed with Cesia RN, patient stable at transfer of care.
--- NOTE | 2022-08-26 19:15 | NUR ---
Pts son here to drive her home. Discharge instructions were given by day RN and PIV was removed. Taken to vehicle in W/C. V/S stable.
== END 2022-08-26 19:15 | disposition home or self-care (01) | DRG 189 ==
LOC: ER 11:25 → ED HOLD 14:52 → PCU 3S 20:15
PROVIDERS: ADMIT Family Medicine; ATTEND Family Medicine
PROC: 5A0955A Assistance with Respiratory Ventilation, Greater than 96 Consecutive Hours, High Flow/Velocity Cannula (ICD-10-PCS; principal; 2022-08-19)
DX: J96.21 Acute and chronic respiratory failure with hypoxia (principal); I50.33 Acute on chronic diastolic (congestive) heart failure; J44.1 Chronic obstructive pulmonary disease with (acute) exacerbation; E87.3 Alkalosis; J44.0 Chronic obstructive pulmonary disease with (acute) lower respiratory infection; I11.0 Hypertensive heart disease with heart failure; J20.9 Acute bronchitis, unspecified; E11.9 Type 2 diabetes mellitus without complications; I35.8 Other nonrheumatic aortic valve disorders; I48.0 Paroxysmal atrial fibrillation; E87.6 Hypokalemia; E78.00 Pure hypercholesterolemia, unspecified; I25.10 Atherosclerotic heart disease of native coronary artery without angina pectoris; Z88.0 Allergy status to penicillin; Z88.5 Allergy status to narcotic agent; Z79.899 Other long term (current) drug therapy
CPT/HCPCS: 36415; 36600; 71045; 80048; 80053; 82803; 82948; 83036; 83605; 83735; 83880; 84484; 85008; 85018; 85025; 85610; 86704; 86705; 86706; 87040; 87081; 87340; 93005; 93306; 94640; 94760; 94799; 99285; A4615; A5200; G0378; J1815; J1940; J1956; J2930; J7030; J7512; Q0177

== ENCOUNTER 2022-12-20 01:25 | Inpatient (IN) | payer MEDICARE, MEDICAID ==
[2022-12-20] VITALS (11 sets, daily range): BP systolic 108–125; BP diastolic 56–64; PULSE 69–103; RESP 14–26; TEMP 97.9; O2SAT 91–98
[~2022-12-20] VITALS: Ht 160 cm; Wt 76.9 kg
[~2022-12-20 01:25] MED LIST changes: -ADV50100 IH; +ALBU18HF2 PO; -AMLO2.5T2 PO; +AMLO5TAB PO; +CHOL500050 PO; +DAPA10TA PO; +ESCI-8 PO; -ESCI10TA PO; -FLUT1BLS16; +FURO40TA4 PO; +HYDR-3927 PO; -LIDO1ADH19 TOP; +LISI40TA13 PO; +LORA-268 PO; -LORA-269 PO; +LORA10TA7 PO; +MELA3TAB39 PO; +OXYB-58 PO; -PRED5TAB PO
[2022-12-20 02:13] LABS: ABG BASE EXCESS -1.6 mmol/L (-2.0-2.0); ABG HCO3 23.2 mmol/L (22.0-26.0); ABG OXYGEN SATURATION 90.9 % (94-97); ABG PCO2 (T) 39.6 mmHg (32.0-45.0); ABG PH (T) 7.386 (7.350-7.450); ABG PO2 (T) 61.7 mmHg (75.0-100.0); ALLEN'S TEST POSITIVE; FCOHb 0.3 % (0.0-3.9); FLOW 55 L/min; FMetHb 0.3 % (0.0-1.5); FO2Hb 90.4 % (94-97); MODE HIGH FLOW; PATIENT TEMPERATURE 37.1; TOTAL HEMOGLOBIN 12.9 G/dl (12.0-16.0)
[2022-12-20 03:39] LABS: BASOPHILS # (AUTO) 0.1 X10'3 (0-0.2); EOSINOPHILS % (AUTO) 0 % (0-6); HEMOGLOBIN 11.4 g/dl (12.0-16.0); MEAN CORPUSCULAR VOLUME 79.4 FL (78-98); MEAN PLATELET VOLUME 6.9 FL (7.4-10.4); MONOCYTES # (AUTO) 0.7 X10'3 (0-0.9); NEUTROPHILS % (AUTO) 96.7 % (42-75)
[2022-12-20 03:40] LABS: BASOPHILS % (AUTO) 0.3 % (0-1); HEMATOCRIT 36.5 % (35.0-45.0); LYMPHOCYTES # (AUTO) 0.2 X10'3 (1.1-4.8); LYMPHOCYTES % (AUTO) 0.7 % (21-51); MEAN CORPUSCULAR HEMOGLOBIN 24.8 PG (27.0-31.0); MEAN CORPUSCULAR HGB CONC 31.3 g/dL (33.0-36.5); MONOCYTES % (AUTO) 2.3 % (2-12); PLATELET COUNT 368 X10'3 (140-440); RED CELL DISTRIBUTION WIDTH 18.1 % (11.5-14.5)
[2022-12-20 03:50] LABS: PROTHROMBIN TIME 10.6 SECONDS (9.0-12.0)
[2022-12-20 03:54] LABS: ALANINE AMINOTRANSFERASE 39 U/L (12-78); ALBUMIN 2.4 G/DL (3.4-5.0); ALBUMIN/GLOBULIN RATIO 0.6 (1.1-1.5); ALKALINE PHOSPHATASE 70 IU/L (46-116); ANION GAP 5 (8-16); ASPARTATE AMINO TRANSFERASE 23 U/L (10-37); BILIRUBIN,TOTAL 0.3 MG/DL (0.1-1.0); BLOOD UREA NITROGEN 28 MG/DL (7-18); BUN/CREATININE RATIO 36.8 (10.0-20.0); CALCIUM 9.1 MG/DL (8.5-10.1); CHLORIDE 103 MMOL/L (99-107); CREATININE 0.76 MG/DL (0.40-0.90); GLUCOSE 205 MG/DL (70-104); POTASSIUM 4.7 MMOL/L (3.5-5.1); SODIUM 138 MMOL/L (135-145); TOTAL CARBON DIOXIDE 29.8 MMOL/L (24-32); TOTAL PROTEIN 6.1 G/DL (6.4-8.2); eCRCL 57 ML/MIN; eGFR 75 ML/MIN
[2022-12-20 04:01] LABS: TOTAL CELLS COUNTED 100
[2022-12-20 04:02] LABS: ANISOCYTOSIS 2+; PLATELET ESTIMATE NORMAL; PRO BRAIN NATRIURETIC PEPTIDE 978 PG/ML (0-125)
[2022-12-20 04:05] LABS: HYPOCHROMASIA 1+; MICROCYTOSIS 1+; POIKILOCYTOSIS FEW
[2022-12-20 04:07] LABS: ELLIPTOCYTES FEW
[2022-12-20] MEDS ORDERED: HYDROcodone/acetaminophen 5mg/325mg tablet PO PRN (04:55)
[2022-12-20] MEDS ORDERED: magnesium 2GM in 50ml NS 50 ML IV PRN (04:55)
[2022-12-20] MEDS ORDERED: mag hydrox/Alum hydrox/simeth 30ml oral suspension PO PRN (04:55)
[2022-12-20] MEDS ORDERED: ondansetron/PF 4mg/2ml inj IV PRN (04:55)
[2022-12-20] MEDS ORDERED: magnesium Cl slow-release 64mg tablet PO PRN (04:55)
[2022-12-20] MEDS ORDERED: potassium Cl 40MEQ/1/2NS 520ml 520 ML IV PRN (04:55)
[2022-12-20] MEDS ORDERED: potassium Cl 20 mEq SR tablet PO PRN ×2 (04:55)
[2022-12-20] MEDS ORDERED: magnesium hydroxide 30ml (MOM) UD suspension PO PRN (04:55)
[2022-12-20] MEDS ORDERED: ipratropium/albuterol 3ml nebule NEB PRN (04:55)
[2022-12-20] MEDS ORDERED: magnesium 4gm in 100ml NS 100 ML IV PRN (04:55)
[2022-12-20] MEDS ORDERED: HYDROcodone/acetaminophen 10/325mg tab PO PRN (04:55)
[2022-12-20] MEDS ORDERED: acetaminophen 325mg tablet PO PRN (04:55)
[2022-12-20] MEDS ORDERED: morphine 2 MG/ML inj. syringe IV PRN (04:55)
[2022-12-20] MEDS ORDERED: dexamethasone sod phosphate 10mg/ml inj IV STA (05:00)
[2022-12-20] MEDS ORDERED: REMDESIVIR 200 MG in NS 100ml IVPB Loading dose IV ONE (05:40)
[2022-12-20] MEDS ORDERED: DEXTROSE 15 GM of carb/4 tabs (each vial/BOTTLE has 4 tablets) PO PRN ×2 (05:50)
[2022-12-20] MEDS ORDERED: dextrose 50%-water 50ml dispensing syringe IV PRN ×2 (05:50)
[2022-12-20] MEDS ORDERED: glucagon, human recombinant 1mg kit SUBCUT PRN (05:50)
[2022-12-20] MEDS ORDERED: MESSAGE TO PHARMACY PO ONE (05:50)
[2022-12-20] MEDS: docusate sod 100mg capsule PO SCH ×2 (07:31→20:00)
[2022-12-20] MEDS: CefTRIAXone/D5W-Rocephin 1gm 50 ML IV SCH (07:32)
[2022-12-20] MEDS: enoxaparin 40mg/0.4ml syringe SUBCUT SCH (07:38)
[2022-12-20] MEDS: azithromycin/NS 500mg/250ml 250 ML IV SCH (07:42)
[2022-12-20] MEDS ORDERED: albuterol 2.5 MG/3 ML nebule NEB PRN (07:45)
[2022-12-20] MEDS: K and/or MAG REPLACEMENT MC SCH ×2 (07:53→18:52)
[2022-12-20] MEDS ORDERED: dexamethasone 4mg/ml inj IM SCH (08:00)
[2022-12-20 08:16] LABS: MAGNESIUM 2.6 MG/DL (1.5-2.4)
--- NOTE | 2022-12-20 08:30 | NUR ---
Patient had positive MRSA nasal swab. Md notified. Patient alert and oriented. Diet advanced to regular as tolerated and has been tolerating well with no n/v. Showered today on day shift. Md noted say patient will be discharged when ready. Addendum: 12/20/22 at 1805 by Bindu Tompkins LVN, LVN wrong patient wrong documentation.
[2022-12-20 09:32] LABS: D-DIMER 0.45 MG/L FEU (0-0.50)
--- NOTE | 2022-12-20 10:18 | NUR ---
Notified r/t Pt not wanting to take insulin. States she does not take it at home.
[2022-12-20 10:22] LABS: C-REACTIVE PROTEIN 13.96 MG/DL (0.0-0.5)
[2022-12-20] MEDS: insulin Lispro (HumaLOG) vial - multi-dose SQ SCH (10:56)
[2022-12-20] MEDS ORDERED: benzocaine/menthol oral lozeng 1 EACH BOX MM PRN (13:05)
[2022-12-20] MEDS ORDERED: HALLS - SOOTHE MENTHOL 1.8 MG cough drop LOZENGE MM PRN ×2 (13:15→13:16)
[2022-12-20] MEDS ORDERED: MOME13HF11 INH (15:22)
[2022-12-20] MEDS ORDERED: LORazepam 0.5 MG tablet PO PRN (16:15)
[2022-12-20] MEDS ORDERED: sennosides 8.6mg tablet PO PRN (16:15)
--- NOTE | 2022-12-20 17:29 | NUR ---
Patient admitted to Ortho floor from ER. Tele 53 placed. respiratory set up venturi where she is at 55%. Patient med rec completed. Commode placed at bedside. one small bm this shift and 450 output of urine. Placed bottom teeth in denture cup. All safety measures in place and call light in reach. Will report to night warehouse manager.
[2022-12-20] MEDS: busPIRone 5mg tablet PO SCH (21:00)
[2022-12-20] MEDS: insulin glargine (Lantus) pen - multi-dose SQ SCH (21:00)
[2022-12-20] MEDS: flecainide 50mg tablet PO SCH (21:01)
--- NOTE | 2022-12-20 22:36 | NUR ---
Pt refused her Lantus and Humalog tonight since her nighttime blood sugar was only 148 without any insulin coverage after dinner. She would like to see what her blood sugar is in the morning. She says she normally controls her diabetes with her diet.
[2022-12-20] MEDS: dexamethasone 4mg/ml inj IV SCH (23:55)
[2022-12-21] VITALS (13 sets, daily range): BP systolic 113–138; BP diastolic 55–62; PULSE 65–93; RESP 17–24; TEMP 97.1–97.7; O2SAT 90–98
--- NOTE | 2022-12-21 02:47 | NUR ---
LI documentation: I have reviewed and agree with the assessment performed and documented by LI DAMIAN. Addendum: 12/21/22 at 0301 by Shira Meyers RN UNLESS CHARTED OTHERWISE.
--- NOTE | 2022-12-21 05:11 | NUR ---
BLADDER SCANNED PT AT 0505 HAD 179 MLS IN BLADDER. VOIDED 150 MLS PRIOR TO BLADDER SCAN.
[2022-12-21 06:13] LABS: BASOPHILS % (AUTO) 0.1 % (0-1); EOSINOPHILS % (AUTO) 0 % (0-6); HEMATOCRIT 32.6 % (35.0-45.0); HEMOGLOBIN 10.1 g/dl (12.0-16.0); LYMPHOCYTES # (AUTO) 0.4 X10'3 (1.1-4.8); LYMPHOCYTES % (AUTO) 1.6 % (21-51); MEAN CORPUSCULAR HEMOGLOBIN 24.7 PG (27.0-31.0); MEAN CORPUSCULAR HGB CONC 31.1 g/dL (33.0-36.5); MEAN CORPUSCULAR VOLUME 79.4 FL (78-98); MEAN PLATELET VOLUME 7.2 FL (7.4-10.4); MONOCYTES # (AUTO) 0.3 X10'3 (0-0.9); MONOCYTES % (AUTO) 1.5 % (2-12); NEUTROPHILS # (AUTO) 20.7 X10'3 (1.8-7.7); NEUTROPHILS % (AUTO) 96.8 % (42-75); PLATELET COUNT 324 X10'3 (140-440); RED BLOOD COUNT 4.11 X10'6 (4.20-5.60); RED CELL DISTRIBUTION WIDTH 18.2 % (11.5-14.5); WHITE BLOOD COUNT 21.4 X10'3 (4.5-11.0)
--- NOTE | 2022-12-21 06:18 | NUR ---
Problems reprioritized. Patient report given, questions answered & plan of care reviewed with Kathe BAKER.
--- NOTE | 2022-12-21 06:18 | NUR ---
Problems reprioritized. Patient report given, questions answered & plan of care reviewed with SAMUEL KYLE.
[2022-12-21 06:24] LABS: ALANINE AMINOTRANSFERASE 29 U/L (12-78); ALBUMIN 2.1 G/DL (3.4-5.0); ALBUMIN/GLOBULIN RATIO 0.6 (1.1-1.5); ALKALINE PHOSPHATASE 58 IU/L (46-116); ANION GAP 7 (8-16); ASPARTATE AMINO TRANSFERASE 13 U/L (10-37); BILIRUBIN,TOTAL 0.2 MG/DL (0.1-1.0); BLOOD UREA NITROGEN 35 MG/DL (7-18); BUN/CREATININE RATIO 63.6 (10.0-20.0); C-REACTIVE PROTEIN 19.07 MG/DL (0.0-0.5); CALCIUM 8.8 MG/DL (8.5-10.1); CHLORIDE 104 MMOL/L (99-107); CREATININE 0.55 MG/DL (0.40-0.90); GLUCOSE 147 MG/DL (70-104); MAGNESIUM 2.3 MG/DL (1.5-2.4); POTASSIUM 4.4 MMOL/L (3.5-5.1); SODIUM 137 MMOL/L (135-145); TOTAL CARBON DIOXIDE 26.3 MMOL/L (24-32); TOTAL PROTEIN 5.8 G/DL (6.4-8.2); eCRCL 79 ML/MIN; eGFR > 90 ML/MIN
[2022-12-21 06:27] LABS: D-DIMER 0.65 MG/L FEU (0-0.50)
[2022-12-21] MEDS: docusate sod 100mg capsule PO SCH ×2 (07:34→21:27)
[2022-12-21] MEDS: azithromycin/NS 500mg/250ml 250 ML IV SCH (07:47)
[2022-12-21] MEDS: dexamethasone 4mg/ml inj IV SCH ×2 (07:47→17:13)
[2022-12-21] MEDS: CefTRIAXone/D5W-Rocephin 1gm 50 ML IV SCH (07:48)
[2022-12-21] MEDS: DAPAGLIFLOZIN 10MG TABLET PO SCH (07:48)
[2022-12-21] MEDS: pantoprazole 40mg Tablet.DR PO SCH (07:49)
[2022-12-21] MEDS: montelukast 10mg tablet PO SCH (07:49)
[2022-12-21] MEDS: flecainide 50mg tablet PO SCH ×2 (07:49→21:28)
[2022-12-21] MEDS: cholecalciferol (vitamin D3) 1,000 unit (25mcg) tablet PO SCH (07:49)
[2022-12-21] MEDS: busPIRone 5mg tablet PO SCH ×3 (07:50→21:28)
[2022-12-21] MEDS: ESCITALOPRAM 10 mg tablet 10 MG TABLET PO SCH (07:50)
[2022-12-21] MEDS: enoxaparin 40mg/0.4ml syringe SUBCUT SCH ×3 (07:50→21:27)
[2022-12-21] MEDS: K and/or MAG REPLACEMENT MC SCH ×2 (08:00→20:00)
[2022-12-21] MEDS ORDERED: REMDESIVIR INJ 100 MG in normal saline 100ml IV soln 100 ML IV SCH (08:00)
--- NOTE | 2022-12-21 09:02 | NUR ---
Diabetes consult: Pt presents with an A1c of 7% this admit per EMR. A1c is appropriate given advanced age per ADA guidelines thus diabetes nutrition education is not warranted at this time. Addendum: 12/21/22 at [address] Amended: Links added.
[2022-12-21] MEDS ORDERED: acetaminophen 325mg tablet PO PRN (12:10)
--- NOTE | 2022-12-21 18:20 | NUR ---
Remdesivir not given this am, not available
--- NOTE | 2022-12-21 18:50 | NUR ---
Patient in room [facility]TH[facility] 4006. I have received report from SAMUEL Archuleta and had the opportunity to ask questions and assume patient care.
--- NOTE | 2022-12-21 18:51 | NUR ---
Report to Louise Tee
[2022-12-21] MEDS: insulin glargine (Lantus) pen - multi-dose SQ SCH (21:00)
[2022-12-22] VITALS (12 sets, daily range): BP systolic 119–150; BP diastolic 56–75; PULSE 62–101; RESP 16–24; TEMP 97–97.6; O2SAT 5–97
[2022-12-22] MEDS: dexamethasone 4mg/ml inj IV SCH ×3 (00:02→17:31)
[2022-12-22 06:19] LABS: BASOPHILS % (AUTO) 0.1 % (0-1); EOSINOPHILS % (AUTO) 0 % (0-6); HEMATOCRIT 34.2 % (35.0-45.0); HEMOGLOBIN 10.7 g/dl (12.0-16.0); LYMPHOCYTES # (AUTO) 0.3 X10'3 (1.1-4.8); LYMPHOCYTES % (AUTO) 2.7 % (21-51); MEAN CORPUSCULAR HEMOGLOBIN 24.6 PG (27.0-31.0); MEAN CORPUSCULAR HGB CONC 31.3 g/dL (33.0-36.5); MEAN CORPUSCULAR VOLUME 78.7 FL (78-98); MEAN PLATELET VOLUME 7.2 FL (7.4-10.4); MONOCYTES # (AUTO) 0.4 X10'3 (0-0.9); MONOCYTES % (AUTO) 3.2 % (2-12); NEUTROPHILS # (AUTO) 10.7 X10'3 (1.8-7.7); PLATELET COUNT 346 X10'3 (140-440); RED BLOOD COUNT 4.35 X10'6 (4.20-5.60); RED CELL DISTRIBUTION WIDTH 18.9 % (11.5-14.5); WHITE BLOOD COUNT 11.4 X10'3 (4.5-11.0)
[2022-12-22 06:31] LABS: ALANINE AMINOTRANSFERASE 35 U/L (12-78); ALBUMIN 2.3 G/DL (3.4-5.0); ALBUMIN/GLOBULIN RATIO 0.6 (1.1-1.5); ALKALINE PHOSPHATASE 64 IU/L (46-116); ANION GAP 9 (8-16); ASPARTATE AMINO TRANSFERASE 17 U/L (10-37); BILIRUBIN,TOTAL 0.3 MG/DL (0.1-1.0); BLOOD UREA NITROGEN 40 MG/DL (7-18); BUN/CREATININE RATIO 63.5 (10.0-20.0); CALCIUM 9.1 MG/DL (8.5-10.1); CHLORIDE 104 MMOL/L (99-107); CREATININE 0.63 MG/DL (0.40-0.90); GLUCOSE 159 MG/DL (70-104); MAGNESIUM 2.3 MG/DL (1.5-2.4); POTASSIUM 4.3 MMOL/L (3.5-5.1); SODIUM 138 MMOL/L (135-145); TOTAL CARBON DIOXIDE 25.4 MMOL/L (24-32); TOTAL PROTEIN 6.3 G/DL (6.4-8.2); eCRCL 69 ML/MIN; eGFR > 90 ML/MIN
--- NOTE | 2022-12-22 06:33 | NUR ---
Problems reprioritized. Patient report given, questions answered & plan of care reviewed with SAMUEL Archuleta.
[2022-12-22 06:58] LABS: ANISOCYTOSIS 2+; MICROCYTOSIS 1+; PLATELET ESTIMATE NORMAL
[2022-12-22 06:59] LABS: ELLIPTOCYTES FEW; HYPOCHROMASIA 1+
[2022-12-22 07:00] LABS: D-DIMER 0.35 MG/L FEU (0-0.50)
[2022-12-22] MEDS: K and/or MAG REPLACEMENT MC SCH ×2 (08:00→20:00)
[2022-12-22] MEDS: CefTRIAXone/D5W-Rocephin 1gm 50 ML IV SCH (08:02)
[2022-12-22] MEDS: montelukast 10mg tablet PO SCH (08:04)
[2022-12-22] MEDS: pantoprazole 40mg Tablet.DR PO SCH (08:04)
[2022-12-22] MEDS: flecainide 50mg tablet PO SCH ×2 (08:04→21:31)
[2022-12-22] MEDS: busPIRone 5mg tablet PO SCH ×3 (08:04→21:30)
[2022-12-22] MEDS: cholecalciferol (vitamin D3) 1,000 unit (25mcg) tablet PO SCH (08:04)
[2022-12-22] MEDS: ESCITALOPRAM 10 mg tablet 10 MG TABLET PO SCH (08:04)
[2022-12-22] MEDS: DAPAGLIFLOZIN 10MG TABLET PO SCH (08:05)
[2022-12-22] MEDS: enoxaparin 40mg/0.4ml syringe SUBCUT SCH ×2 (08:05→21:48)
[2022-12-22] MEDS: docusate sod 100mg capsule PO SCH ×2 (08:05→20:00)
[2022-12-22] MEDS: azithromycin/NS 500mg/250ml 250 ML IV SCH (08:06)
[2022-12-22] MEDS ORDERED: PRED10TA PO (12:15)
[2022-12-22] MEDS ORDERED: POTA-207 PO (12:15)
[2022-12-22] MEDS ORDERED: CARV3.122 PO (12:22)
[2022-12-22] MEDS ORDERED: ondansetron 4mg rapidly disintigrating tab PO PRN (15:20)
--- NOTE | 2022-12-22 18:43 | NUR ---
Report to Alden JEFFERSON
[2022-12-22] MEDS: insulin glargine (Lantus) pen - multi-dose SQ SCH (21:53)
[2022-12-22] MEDS: REMDESIVIR INJ 100 MG in normal saline 100ml IV soln 100 ML IV SCH (21:54)
[2022-12-23] VITALS (13 sets, daily range): BP systolic 119–158; BP diastolic 44–83; PULSE 59–121; RESP 15–28; TEMP 97.5–98; O2SAT 92–99
[2022-12-23] MEDS: dexamethasone 4mg/ml inj IV SCH ×3 (01:09→16:30)
--- NOTE | 2022-12-23 06:15 | NUR ---
report from jolynn penaloza
[2022-12-23 06:28] LABS: BASOPHILS % (AUTO) 0.2 % (0-1); EOSINOPHILS % (AUTO) 0 % (0-6); HEMATOCRIT 34.2 % (35.0-45.0); HEMOGLOBIN 10.9 g/dl (12.0-16.0); LYMPHOCYTES # (AUTO) 0.3 X10'3 (1.1-4.8); LYMPHOCYTES % (AUTO) 3.6 % (21-51); MEAN CORPUSCULAR HEMOGLOBIN 25.2 PG (27.0-31.0); MEAN CORPUSCULAR HGB CONC 31.9 g/dL (33.0-36.5); MEAN CORPUSCULAR VOLUME 78.9 FL (78-98); MEAN PLATELET VOLUME 7.1 FL (7.4-10.4); MONOCYTES # (AUTO) 0.3 X10'3 (0-0.9); MONOCYTES % (AUTO) 3.3 % (2-12); NEUTROPHILS # (AUTO) 7.8 X10'3 (1.8-7.7); NEUTROPHILS % (AUTO) 92.9 % (42-75); PLATELET COUNT 317 X10'3 (140-440); RED BLOOD COUNT 4.33 X10'6 (4.20-5.60); RED CELL DISTRIBUTION WIDTH 18.1 % (11.5-14.5); WHITE BLOOD COUNT 8.3 X10'3 (4.5-11.0)
--- NOTE | 2022-12-23 06:28 | NUR ---
Report to Keshia BAKER
[2022-12-23 06:34] LABS: D-DIMER 0.35 MG/L FEU (0-0.50)
[2022-12-23 06:45] LABS: ALANINE AMINOTRANSFERASE 37 U/L (12-78); ALBUMIN 2.2 G/DL (3.4-5.0); ALBUMIN/GLOBULIN RATIO 0.6 (1.1-1.5); ALKALINE PHOSPHATASE 57 IU/L (46-116); ANION GAP 7 (8-16); ASPARTATE AMINO TRANSFERASE 23 U/L (10-37); BILIRUBIN,TOTAL 0.3 MG/DL (0.1-1.0); BLOOD UREA NITROGEN 36 MG/DL (7-18); BUN/CREATININE RATIO 70.6 (10.0-20.0); C-REACTIVE PROTEIN 3.95 MG/DL (0.0-0.5); CALCIUM 8.9 MG/DL (8.5-10.1); CHLORIDE 102 MMOL/L (99-107); CREATININE 0.51 MG/DL (0.40-0.90); GLUCOSE 157 MG/DL (70-104); MAGNESIUM 2.1 MG/DL (1.5-2.4); POTASSIUM 4.5 MMOL/L (3.5-5.1); SODIUM 136 MMOL/L (135-145); eCRCL 85 ML/MIN; eGFR > 90 ML/MIN
--- NOTE | 2022-12-23 07:30 | NUR ---
rm 4006 Aron Wallace ext [phone]. Pt converted out of sr into afib last night at 2252. Ekg confirms. Please advise Thanks Mary Addendum: 12/23/22 at 1008 by Keshia Maurer RN rm 4006 aron wallace ext [phone] pt converted back to normal sinus with a bbb at 0933. Diltiazem was given Thanks mary
[2022-12-23] MEDS: CefTRIAXone/D5W-Rocephin 1gm 50 ML IV SCH (07:43)
[2022-12-23] MEDS: DAPAGLIFLOZIN 10MG TABLET PO SCH (07:44)
[2022-12-23] MEDS: montelukast 10mg tablet PO SCH (07:44)
[2022-12-23] MEDS: flecainide 50mg tablet PO SCH ×2 (07:44→19:49)
[2022-12-23] MEDS: cholecalciferol (vitamin D3) 1,000 unit (25mcg) tablet PO SCH (07:44)
[2022-12-23] MEDS: enoxaparin 40mg/0.4ml syringe SUBCUT SCH ×2 (07:44→19:49)
[2022-12-23] MEDS: docusate sod 100mg capsule PO SCH ×2 (07:45→19:49)
[2022-12-23] MEDS: K and/or MAG REPLACEMENT MC SCH ×2 (07:45→20:00)
[2022-12-23] MEDS: ESCITALOPRAM 10 mg tablet 10 MG TABLET PO SCH (07:45)
[2022-12-23] MEDS: pantoprazole 40mg Tablet.DR PO SCH (07:45)
[2022-12-23] MEDS: busPIRone 5mg tablet PO SCH ×3 (07:45→21:10)
[2022-12-23] MEDS ORDERED: diltiazem 30mg tablet PO ONE (08:35)
[2022-12-23] MEDS: azithromycin/NS 500mg/250ml 250 ML IV SCH ×2 (09:28→10:46)
[2022-12-23] MEDS: insulin Lispro (HumaLOG) vial - multi-dose SQ SCH ×3 (09:32→19:48)
[2022-12-23] MEDS: diltiazem 30mg tablet PO SCH ×2 (14:00→19:49)
--- NOTE | 2022-12-23 14:45 | NUR ---
PAGER ID: [phone] MESSAGE: Rapid response called on 400. aron mac. chest pain
[2022-12-23] MEDS ORDERED: nitroGLYCERIN 0.4mg SUBLingual tab SL PRN (14:55)
[2022-12-23] MEDS ORDERED: nitroGLYCERIN 0.4mg SUBLingual tab SL ONE (14:57)
--- NOTE | 2022-12-23 14:58 | NUR ---
PAGER ID: [phone] MESSAGE: Rapid response on 4001, Ángela Wallace. Team is requesting your help. [phone]
[2022-12-23 15:40] LABS: BASOPHILS % (AUTO) 0 % (0-1); EOSINOPHILS % (AUTO) 0 % (0-6); HEMATOCRIT 34.5 % (35.0-45.0); HEMOGLOBIN 11.1 g/dl (12.0-16.0); LYMPHOCYTES # (AUTO) 0.3 X10'3 (1.1-4.8); LYMPHOCYTES % (AUTO) 3.8 % (21-51); MEAN CORPUSCULAR HEMOGLOBIN 25.1 PG (27.0-31.0); MEAN CORPUSCULAR HGB CONC 32.1 g/dL (33.0-36.5); MEAN CORPUSCULAR VOLUME 78.2 FL (78-98); MONOCYTES # (AUTO) 0.4 X10'3 (0-0.9); MONOCYTES % (AUTO) 4.5 % (2-12); NEUTROPHILS # (AUTO) 7.1 X10'3 (1.8-7.7); NEUTROPHILS % (AUTO) 91.7 % (42-75); PLATELET COUNT 363 X10'3 (140-440); RED BLOOD COUNT 4.41 X10'6 (4.20-5.60); WHITE BLOOD COUNT 7.7 X10'3 (4.5-11.0)
[2022-12-23 15:43] LABS: ALANINE AMINOTRANSFERASE 36 U/L (12-78); ALBUMIN 2.3 G/DL (3.4-5.0); ALBUMIN/GLOBULIN RATIO 0.6 (1.1-1.5); ALKALINE PHOSPHATASE 55 IU/L (46-116); ANION GAP 7 (8-16); ASPARTATE AMINO TRANSFERASE 14 U/L (10-37); BILIRUBIN,TOTAL 0.2 MG/DL (0.1-1.0); BLOOD UREA NITROGEN 38 MG/DL (7-18); BUN/CREATININE RATIO 60.3 (10.0-20.0); CALCIUM 8.6 MG/DL (8.5-10.1); CHLORIDE 102 MMOL/L (99-107); CREATININE 0.63 MG/DL (0.40-0.90); GLUCOSE 137 MG/DL (70-104); POTASSIUM 4.3 MMOL/L (3.5-5.1); SODIUM 137 MMOL/L (135-145); TOTAL CARBON DIOXIDE 27.6 MMOL/L (24-32); TOTAL PROTEIN 5.9 G/DL (6.4-8.2); eCRCL 69 ML/MIN; eGFR > 90 ML/MIN
[2022-12-23] MEDS: REMDESIVIR INJ 100 MG in normal saline 100ml IV soln 100 ML IV SCH (21:10)
[2022-12-23] MEDS: insulin glargine (Lantus) pen - multi-dose SQ SCH (21:39)
--- NOTE | 2022-12-23 23:34 | NUR ---
Tele monitor called to notify of pt heart rate of 52. Pt is resting in bed, easily to rouse, alert. Dr. Lee notified, no new orders at this time.
[2022-12-24] VITALS (14 sets, daily range): BP systolic 134–164; BP diastolic 64–72; PULSE 48–98; RESP 16–20; TEMP 97.5–98.4; O2SAT 60–97
[2022-12-24] MEDS: dexamethasone 4mg/ml inj IV SCH ×3 (00:12→15:10)
--- NOTE | 2022-12-24 00:49 | NUR ---
tele monitor called to report a heart rate of 46. Dr. Lee notified, holding scheduled 0200 cardizem per
[2022-12-24] MEDS: diltiazem 30mg tablet PO SCH ×4 (02:00→19:22)
--- NOTE | 2022-12-24 03:03 | NUR ---
tele monitor called to report pt HR sustaining in mid 40's. Dr. Lee is aware, no new orders at this time
--- NOTE | 2022-12-24 06:29 | NUR ---
report to Kelly BAKER
--- NOTE | 2022-12-24 06:38 | NUR ---
Patient in room [facility]TH[facility] 4006. I have received report from Alden and had the opportunity to ask questions and assume patient care.
[2022-12-24 07:06] LABS: BASOPHILS % (AUTO) 0.1 % (0-1); EOSINOPHILS % (AUTO) 0 % (0-6); HEMATOCRIT 34.1 % (35.0-45.0); LYMPHOCYTES # (AUTO) 0.3 X10'3 (1.1-4.8); LYMPHOCYTES % (AUTO) 5.4 % (21-51); MEAN CORPUSCULAR HEMOGLOBIN 25.2 PG (27.0-31.0); MEAN CORPUSCULAR HGB CONC 32.2 g/dL (33.0-36.5); MEAN CORPUSCULAR VOLUME 78.2 FL (78-98); MEAN PLATELET VOLUME 6.7 FL (7.4-10.4); MONOCYTES # (AUTO) 0.4 X10'3 (0-0.9); MONOCYTES % (AUTO) 6.3 % (2-12); NEUTROPHILS # (AUTO) 5.5 X10'3 (1.8-7.7); NEUTROPHILS % (AUTO) 88.2 % (42-75); PLATELET COUNT 313 X10'3 (140-440); RED BLOOD COUNT 4.36 X10'6 (4.20-5.60); WHITE BLOOD COUNT 6.2 X10'3 (4.5-11.0)
[2022-12-24 07:14] LABS: D-DIMER 0.26 MG/L FEU (0-0.50)
[2022-12-24 07:28] LABS: ALANINE AMINOTRANSFERASE 31 U/L (12-78); ALBUMIN 2.3 G/DL (3.4-5.0); ALBUMIN/GLOBULIN RATIO 0.7 (1.1-1.5); ALKALINE PHOSPHATASE 51 IU/L (46-116); ANION GAP 4 (8-16); ASPARTATE AMINO TRANSFERASE 10 U/L (10-37); BILIRUBIN,TOTAL 0.3 MG/DL (0.1-1.0); BLOOD UREA NITROGEN 34 MG/DL (7-18); BUN/CREATININE RATIO 59.6 (10.0-20.0); C-REACTIVE PROTEIN 1.84 MG/DL (0.0-0.5); CALCIUM 8.8 MG/DL (8.5-10.1); CHLORIDE 104 MMOL/L (99-107); CREATININE 0.57 MG/DL (0.40-0.90); GLUCOSE 141 MG/DL (70-104); MAGNESIUM 2.1 MG/DL (1.5-2.4); POTASSIUM 4.6 MMOL/L (3.5-5.1); SODIUM 138 MMOL/L (135-145); TOTAL CARBON DIOXIDE 30.5 MMOL/L (24-32); TOTAL PROTEIN 5.7 G/DL (6.4-8.2); eCRCL 76 ML/MIN; eGFR > 90 ML/MIN
[2022-12-24] MEDS: nitroGLYCERIN 0.2mg/hour patch TD SCH (08:00)
[2022-12-24] MEDS: K and/or MAG REPLACEMENT MC SCH ×2 (08:00→20:00)
[2022-12-24] MEDS: insulin Lispro (HumaLOG) vial - multi-dose SQ SCH ×3 (08:29→19:31)
[2022-12-24] MEDS: enoxaparin 40mg/0.4ml syringe SUBCUT SCH (08:33)
[2022-12-24] MEDS: CefTRIAXone/D5W-Rocephin 1gm 50 ML IV SCH (08:34)
[2022-12-24] MEDS: ESCITALOPRAM 10 mg tablet 10 MG TABLET PO SCH (08:34)
[2022-12-24] MEDS: pantoprazole 40mg Tablet.DR PO SCH (08:34)
[2022-12-24] MEDS: montelukast 10mg tablet PO SCH (08:34)
[2022-12-24] MEDS: docusate sod 100mg capsule PO SCH ×2 (08:34→19:22)
[2022-12-24] MEDS: cholecalciferol (vitamin D3) 1,000 unit (25mcg) tablet PO SCH (08:34)
[2022-12-24] MEDS: busPIRone 5mg tablet PO SCH ×3 (08:34→20:55)
[2022-12-24] MEDS: flecainide 50mg tablet PO SCH ×2 (08:34→19:22)
--- NOTE | 2022-12-24 09:56 | NUR ---
Initial: Pt admit for acute worsening of chronic respiratory failure secondary to COVID-19 pneumonia and COPD exacerbation. Pt on a heart healthy CHO controlled diet and initially eating poorly, documented with average 28% PO intake of first four meals however up to average 86% PO intake the following seven meals meeting 100% estimated nutrient needs. Per EMR patient's oxygen requirements have decreased, currently on 8 L HFNC. Improved oxygen status possibly contributing to improved PO intake. LBM 12/23 per EMR. No nutrition intervention warranted at this time. Will continue to follow and make recommendations as appropriate. Recommendations: 1) Continue heart healthy CHO controlled diet 2) Monitor need for ONS/additional protein 3) Routine bowel care 4) Weekly scaled weights Addendum: 12/24/22 at [address] Amended: Links added.
[2022-12-24] MEDS: azithromycin/NS 500mg/250ml 250 ML IV SCH (10:12)
[2022-12-24] MEDS: DAPAGLIFLOZIN 10MG TABLET PO SCH (10:12)
[2022-12-24] MEDS: ipratropium/albuterol 3ml nebule NEB PRN ×2 (10:26→15:32)
[2022-12-24] MEDS: REMDESIVIR INJ 100 MG in normal saline 100ml IV soln 100 ML IV SCH (19:22)
[2022-12-24] MEDS: insulin glargine (Lantus) pen - multi-dose SQ SCH (21:09)
[2022-12-25] VITALS (9 sets, daily range): BP systolic 106–166; BP diastolic 61–79; PULSE 52–85; RESP 18–22; TEMP 96.3–98.1; O2SAT 92–98
[2022-12-25] MEDS: dexamethasone 4mg/ml inj IV SCH ×3 (00:07→15:06)
[2022-12-25] MEDS: diltiazem 30mg tablet PO SCH (02:00)
[2022-12-25 06:54] LABS: BASOPHILS % (AUTO) 0.1 % (0-1); EOSINOPHILS % (AUTO) 0 % (0-6); HEMOGLOBIN 11.1 g/dl (12.0-16.0); LYMPHOCYTES # (AUTO) 0.2 X10'3 (1.1-4.8); LYMPHOCYTES % (AUTO) 3.3 % (21-51); MEAN CORPUSCULAR HEMOGLOBIN 25.1 PG (27.0-31.0); MEAN CORPUSCULAR HGB CONC 31.6 g/dL (33.0-36.5); MEAN CORPUSCULAR VOLUME 79.3 FL (78-98); MEAN PLATELET VOLUME 6.9 FL (7.4-10.4); MONOCYTES # (AUTO) 0.3 X10'3 (0-0.9); MONOCYTES % (AUTO) 4.3 % (2-12); NEUTROPHILS % (AUTO) 92.3 % (42-75); PLATELET COUNT 307 X10'3 (140-440); RED BLOOD COUNT 4.42 X10'6 (4.20-5.60); RED CELL DISTRIBUTION WIDTH 18.1 % (11.5-14.5); WHITE BLOOD COUNT 6.5 X10'3 (4.5-11.0)
[2022-12-25 06:59] LABS: D-DIMER 0.26 MG/L FEU (0-0.50)
[2022-12-25 07:10] LABS: ALANINE AMINOTRANSFERASE 28 U/L (12-78); ALBUMIN 2.4 G/DL (3.4-5.0); ALBUMIN/GLOBULIN RATIO 0.8 (1.1-1.5); ALKALINE PHOSPHATASE 50 IU/L (46-116); ANION GAP 3 (8-16); ASPARTATE AMINO TRANSFERASE 7 U/L (10-37); BILIRUBIN,TOTAL 0.3 MG/DL (0.1-1.0); BLOOD UREA NITROGEN 34 MG/DL (7-18); BUN/CREATININE RATIO 50.7 (10.0-20.0); C-REACTIVE PROTEIN 1.01 MG/DL (0.0-0.5); CALCIUM 8.8 MG/DL (8.5-10.1); CHLORIDE 103 MMOL/L (99-107); CREATININE 0.67 MG/DL (0.40-0.90); GLUCOSE 164 MG/DL (70-104); POTASSIUM 4.6 MMOL/L (3.5-5.1); SODIUM 138 MMOL/L (135-145); TOTAL CARBON DIOXIDE 31.8 MMOL/L (24-32); TOTAL PROTEIN 5.6 G/DL (6.4-8.2); eCRCL 65 ML/MIN; eGFR 87 ML/MIN
[2022-12-25] MEDS: K and/or MAG REPLACEMENT MC SCH ×2 (08:00→20:00)
[2022-12-25] MEDS: flecainide 50mg tablet PO SCH ×2 (08:21→19:36)
[2022-12-25] MEDS: DAPAGLIFLOZIN 10MG TABLET PO SCH (08:21)
[2022-12-25] MEDS: pantoprazole 40mg Tablet.DR PO SCH (08:21)
[2022-12-25] MEDS: montelukast 10mg tablet PO SCH (08:21)
[2022-12-25] MEDS: nitroGLYCERIN 0.2mg/hour patch TD SCH (08:21)
[2022-12-25] MEDS: ESCITALOPRAM 10 mg tablet 10 MG TABLET PO SCH (08:21)
[2022-12-25] MEDS: busPIRone 5mg tablet PO SCH ×3 (08:21→19:36)
[2022-12-25] MEDS: cholecalciferol (vitamin D3) 1,000 unit (25mcg) tablet PO SCH (08:21)
[2022-12-25] MEDS: docusate sod 100mg capsule PO SCH ×2 (08:21→19:35)
[2022-12-25] MEDS: enoxaparin 40mg/0.4ml syringe SUBCUT SCH (08:22)
[2022-12-25] MEDS: insulin Lispro (HumaLOG) vial - multi-dose SQ SCH ×2 (10:00→19:39)
[2022-12-25] MEDS ORDERED: MONT-40 PO (11:38)
[2022-12-25] MEDS ORDERED: PRED20TA PO (11:38)
[2022-12-25] MEDS ORDERED: NITR1PAT63 TD (11:38)
--- NOTE | 2022-12-25 14:56 | NUR ---
PAGER ID: [phone] MESSAGE: NATALI JORDAN. UNABLE TO GET PUBLIC RIDE. PTS SON WILL PICK HER UP TOMORROW. DEINSHA [id number]
[2022-12-25] MEDS: carVEDilol 3.125mg tablet PO SCH (19:36)
[2022-12-25] MEDS: insulin glargine (Lantus) pen - multi-dose SQ SCH (21:38)
[2022-12-26] VITALS (7 sets, daily range): BP systolic 150–167; BP diastolic 64–67; PULSE 66–75; RESP 16–20; TEMP 97.3–97.9; O2SAT 95–98
--- NOTE | 2022-12-26 06:30 | NUR ---
Report received and care assumed from Shirley BAKER. Joan BAKER
--- NOTE | 2022-12-26 06:46 | NUR ---
Patient in room [facility]TH[facility] 4006. I have received report from Upkeep Charlie and had the opportunity to ask questions and assume patient care.
[2022-12-26] MEDS ORDERED: OXYBUTYNIN CHLORIDE 5 MG PO SCH (08:00)
[2022-12-26] MEDS ORDERED: lisinopril 20mg tablet PO SCH (08:00)
[2022-12-26] MEDS: docusate sod 100mg capsule PO SCH (08:00)
[2022-12-26] MEDS ORDERED: predniSONE 20 mg tablet PO SCH (08:00)
[2022-12-26] MEDS: nitroGLYCERIN 0.2mg/hour patch TD SCH (08:30)
[2022-12-26] MEDS: K and/or MAG REPLACEMENT MC SCH (08:30)
[2022-12-26] MEDS: pantoprazole 40mg Tablet.DR PO SCH (08:30)
[2022-12-26] MEDS: flecainide 50mg tablet PO SCH (08:34)
[2022-12-26] MEDS: montelukast 10mg tablet PO SCH (08:35)
[2022-12-26] MEDS: cholecalciferol (vitamin D3) 1,000 unit (25mcg) tablet PO SCH (08:35)
[2022-12-26] MEDS: busPIRone 5mg tablet PO SCH ×2 (08:35→13:21)
[2022-12-26] MEDS: ESCITALOPRAM 10 mg tablet 10 MG TABLET PO SCH (08:35)
[2022-12-26] MEDS: DAPAGLIFLOZIN 10MG TABLET PO SCH (08:35)
[2022-12-26] MEDS: carVEDilol 3.125mg tablet PO SCH (08:35)
[2022-12-26] MEDS: enoxaparin 40mg/0.4ml syringe SUBCUT SCH (08:42)
--- NOTE | 2022-12-26 14:00 | NUR ---
Orientee documentation:Goldie RN I have reviewed and agree with all interventions, medication administration per hospital policy, and assessments performed and documented by orientee. Reviewed assessments and provided appropriate feedback. SAMUEL fuentes made updates to the documentation where needed.
--- NOTE | 2022-12-26 14:35 | NUR ---
Pt given discharge instructions, provided all her home meds from pharmacy, taken out to son leeann's truck for discharge home with family-pt alert & oriented, discharged home with her home oxygen concentrators
[2022-12-26] MEDS ORDERED: dexamethasone 4mg tablet PO ONE (17:30)
== END 2022-12-26 14:40 | disposition home or self-care (01) | DRG 871 ==
LOC: ER 01:25 → ED HOLD 05:00 → UNDOADMIN 05:00 → ED HOLD 10:48 → ORTHO 4S 11:56
PROVIDERS: ADMIT Family Medicine; ATTEND Family Medicine
PROC: XW033E5 Introduction of Remdesivir Anti-infective into Peripheral Vein, Percutaneous Approach, New Technology Group 5 (ICD-10-PCS; principal; 2022-12-20)
PROC: 5A0935A Assistance with Respiratory Ventilation, Less than 24 Consecutive Hours, High Flow/Velocity Cannula (ICD-10-PCS; 2022-12-20)
PROC: 5A0935A Assistance with Respiratory Ventilation, Less than 24 Consecutive Hours, High Flow/Velocity Cannula (ICD-10-PCS; 2022-12-21)
PROC: 5A0935A Assistance with Respiratory Ventilation, Less than 24 Consecutive Hours, High Flow/Velocity Cannula (ICD-10-PCS; 2022-12-23)
PROC: 5A0935A Assistance with Respiratory Ventilation, Less than 24 Consecutive Hours, High Flow/Velocity Cannula (ICD-10-PCS; 2022-12-24)
PROC: 5A0935A Assistance with Respiratory Ventilation, Less than 24 Consecutive Hours, High Flow/Velocity Cannula (ICD-10-PCS; 2022-12-25)
DX: A41.9 Sepsis, unspecified organism (principal); J12.82 Pneumonia due to coronavirus disease 2019; U07.1 COVID-19; J96.20 Acute and chronic respiratory failure, unspecified whether with hypoxia or hypercapnia; I50.32 Chronic diastolic (congestive) heart failure; I48.20 Chronic atrial fibrillation, unspecified; J44.0 Chronic obstructive pulmonary disease with (acute) lower respiratory infection; J44.1 Chronic obstructive pulmonary disease with (acute) exacerbation; I95.9 Hypotension, unspecified; E78.00 Pure hypercholesterolemia, unspecified; F41.9 Anxiety disorder, unspecified; I11.0 Hypertensive heart disease with heart failure; I45.10 Unspecified right bundle-branch block; I25.119 Atherosclerotic heart disease of native coronary artery with unspecified angina pectoris; J20.8 Acute bronchitis due to other specified organisms; E78.5 Hyperlipidemia, unspecified; E11.9 Type 2 diabetes mellitus without complications; Z87.891 Personal history of nicotine dependence; Z79.51 Long term (current) use of inhaled steroids; Z88.0 Allergy status to penicillin; Z88.5 Allergy status to narcotic agent; Z79.899 Other long term (current) drug therapy; Z79.4 Long term (current) use of insulin
CPT/HCPCS: 36415; 36600; 71045; 80053; 82803; 82948; 83036; 83605; 83735; 83880; 84145; 84484; 85007; 85008; 85018; 85025; 85379; 85610; 86140; 87040; 87081; 93005; 94640; 94760; 99285; A4615; C2617; G0378; J0456; J0696; J1100; J1650; J1815; J3490; J7040; J7512

== ENCOUNTER 2023-04-09 13:36 | Inpatient (IN) | payer MEDICARE, MEDICAID ==
[~2023-04-09] VITALS: Ht 160 cm; Wt 75.0 kg
[~2023-04-09 13:36] MED LIST changes: -BUDE10.2 INH; +CARV3.122 PO; -FURO40TA4 PO; -GUAI100L37 PO; -HYDR-3927 PO; -HYDR-3965 PO; -LORA10TA7 PO; +MOME13HF11 INH; -NYST15CR37 TOP; +POTA-207 PO; +PRED20TA PO; -ROFL500T7 PO; -SUCR1TAB PO
[2023-04-09 14:34] LABS: BASOPHILS % (AUTO) 0.1 % (0-1); EOSINOPHILS % (AUTO) 0 % (0-6); HEMATOCRIT 31.8 % (35.0-45.0); HEMOGLOBIN 9.9 g/dl (12.0-16.0); LYMPHOCYTES # (AUTO) 0.4 X10'3 (1.1-4.8); LYMPHOCYTES % (AUTO) 5.1 % (21-51); MEAN CORPUSCULAR HEMOGLOBIN 23.8 PG (27.0-31.0); MEAN CORPUSCULAR HGB CONC 31.1 g/dL (33.0-36.5); MEAN CORPUSCULAR VOLUME 76.6 FL (78-98); MEAN PLATELET VOLUME 7.1 FL (7.4-10.4); MONOCYTES # (AUTO) 0.1 X10'3 (0-0.9); MONOCYTES % (AUTO) 1.9 % (2-12); NEUTROPHILS % (AUTO) 92.9 % (42-75); PLATELET COUNT 474 X10'3 (140-440); RED BLOOD COUNT 4.15 X10'6 (4.20-5.60); RED CELL DISTRIBUTION WIDTH 18.7 % (11.5-14.5); WHITE BLOOD COUNT 7.5 X10'3 (4.5-11.0)
[2023-04-09 14:49] LABS: ANION GAP 5 (8-16); BLOOD UREA NITROGEN 25 MG/DL (7-18); BUN/CREATININE RATIO 26.9 (10.0-20.0); CHLORIDE 98 MMOL/L (99-107); CREATININE 0.93 MG/DL (0.40-0.90); GLUCOSE 178 MG/DL (70-104); POTASSIUM 3.7 MMOL/L (3.5-5.1); PRO BRAIN NATRIURETIC PEPTIDE 2322 PG/ML (0-125); SODIUM 142 MMOL/L (135-145); eCRCL 46 ML/MIN; eGFR 59 ML/MIN
[2023-04-09 15:03] LABS: ANISOCYTOSIS 2+
[2023-04-09 15:07] LABS: MICROCYTOSIS 1+; STOMATOCYTES 1+
[2023-04-09 15:14] LABS: POLYCHROMASIA FEW
[2023-04-09 15:16] LABS: ELLIPTOCYTES FEW; SCHISTOCYTES FEW; TEAR DROP CELLS FEW
[2023-04-09 15:17] LABS: PLATELET ESTIMATE INCREASED
[2023-04-09 15:20] LABS: HYPOCHROMASIA 1+
[2023-04-09] MEDS: albuterol 2.5 MG/3 ML nebule CONTNEB PRN (15:34)
[2023-04-09 15:36] VITALS: PULSE 93; RESP 23; O2SAT 97
[2023-04-09 15:53] LABS: ABG BASE EXCESS 9.1 mmol/L (-2.0-2.0); ABG HCO3 35.4 mmol/L (22.0-26.0); ABG OXYGEN SATURATION 97.1 % (94-97); ABG PCO2 (T) 57.4 mmHg (32.0-45.0); ABG PH (T) 7.408 (7.350-7.450); ABG PO2 (T) 91.2 mmHg (75.0-100.0); ALLEN'S TEST POSITIVE; FCOHb 0.3 % (0.0-3.9); FHHb 2.9 % (0.0-5.0); FLOW 10 L/min; FMetHb 0.3 % (0.0-1.5); FO2Hb 96.5 % (94-97); MODE MASK - SIMPLE
[2023-04-09 16:38] LABS: BILIRUBIN,URINE NEGATIVE (Neg); CLARITY,URINE CLEAR (Clear); COLOR,URINE YELLOW (Yellow); GLUCOSE, URINE NEGATIVE (Neg); KETONES,URINE NEGATIVE (Neg); LEUKOCYTE ESTERASE ,URINE NEGATIVE (Neg); NITRITES, URINE NEGATIVE (Neg); OCCULT BLOOD,URINE NEGATIVE (Neg); PROTEIN,URINE NEGATIVE (Neg); UROBILINOGEN,URINE 0.2 E.U/dL (0.2-1.0)
[2023-04-09 16:39] LABS: UA COLLECTION TYPE NON-SPECIFIED
[2023-04-09 16:47] VITALS: PULSE 90; RESP 21; O2SAT 92
[2023-04-09] MEDS ORDERED: potassium Cl 20 mEq SR tablet PO PRN ×2 (17:20)
[2023-04-09] MEDS ORDERED: magnesium 2GM in 50ml NS 50 ML IV PRN (17:20)
[2023-04-09] MEDS ORDERED: ondansetron/PF 4mg/2ml inj IV PRN (17:20)
[2023-04-09] MEDS ORDERED: mag hydrox/Alum hydrox/simeth 30ml oral suspension PO PRN (17:20)
[2023-04-09] MEDS ORDERED: magnesium 4gm in 100ml NS 100 ML IV PRN (17:20)
[2023-04-09] MEDS ORDERED: potassium Cl 40MEQ/1/2NS 520ml 520 ML IV PRN (17:20)
[2023-04-09] MEDS: PERFLUTREN PROTEIN-A MICROSPHR (Optison) 0.22 MG/ML 3ML VIAL IV ONE (17:37)
[2023-04-09] MEDS ORDERED: DEXTROSE 15 GM of carb/4 tabs (each vial/BOTTLE has 4 tablets) PO PRN ×2 (17:40)
[2023-04-09] MEDS ORDERED: glucagon, human recombinant 1mg kit SUBCUT PRN (17:40)
[2023-04-09] MEDS ORDERED: dextrose 50%-water 50ml dispensing syringe IV PRN ×2 (17:40)
[2023-04-09] MEDS: MESSAGE TO PHARMACY PO ONE (17:46)
[2023-04-09 19:28] VITALS: PULSE 91; RESP 22; O2SAT 92
[2023-04-09] MEDS: ipratropium/albuterol 3ml nebule NEB PRN (19:28)
[2023-04-09 19:33] VITALS: PULSE 91; RESP 22; O2SAT 92
[2023-04-09 19:35] VITALS: PULSE 77; RESP 20
[2023-04-09] MEDS: docusate sod 100mg capsule PO SCH (20:00)
[2023-04-09] MEDS: K and/or MAG REPLACEMENT MC SCH (20:00)
[2023-04-09] MEDS: furosemide 10 MG/1 ML 10ml inj IV SCH (20:35)
[2023-04-09] MEDS: CefTRIAXone/D5W-Rocephin 1gm 50 ML IV ONE (20:36)
[2023-04-09] MEDS: insulin glargine (Lantus) pen - multi-dose SQ SCH (21:00)
[2023-04-09] MEDS: methylPREDNISolone sod succ 125mg/2ml vial IV SCH (21:33)
[2023-04-09 23:24] VITALS: PULSE 87; RESP 22; O2SAT 90
[2023-04-10] VITALS (19 sets, daily range): BP systolic 116–148; BP diastolic 55–85; PULSE 65–97; RESP 17–30; TEMP 97.1–97.7; O2SAT 91–99
[2023-04-10] MEDS: heparin, porcine 5000 units/ml vial SQ SCH (00:03)
[2023-04-10] MEDS: acetaminophen 325mg tablet PO PRN (03:31)
[2023-04-10 05:06] LABS: ABG BASE EXCESS 10.1 mmol/L (-2.0-2.0); ABG OXYGEN SATURATION 89.3 % (94-97); ABG PCO2 (T) 62.2 mmHg (32.0-45.0); ABG PO2 (T) 58.5 mmHg (75.0-100.0); ALLEN'S TEST POSITIVE; FCOHb 0.6 % (0.0-3.9); FHHb 10.6 % (0.0-5.0); FMetHb 0.3 % (0.0-1.5); FO2Hb 88.5 % (94-97); MODE MASK - BIPAP; PATIENT TEMPERATURE 36.5; RESPIRATORY RATE 16 b/min; TOTAL HEMOGLOBIN 10.5 G/dl (12.0-16.0)
[2023-04-10 07:11] LABS: BASOPHILS % (AUTO) 0.3 % (0-1); EOSINOPHILS % (AUTO) 0 % (0-6); HEMATOCRIT 28.8 % (35.0-45.0); HEMOGLOBIN 9.1 g/dl (12.0-16.0); LYMPHOCYTES # (AUTO) 0.4 X10'3 (1.1-4.8); LYMPHOCYTES % (AUTO) 4.9 % (21-51); MEAN CORPUSCULAR HEMOGLOBIN 24.2 PG (27.0-31.0); MEAN CORPUSCULAR HGB CONC 31.7 g/dL (33.0-36.5); MEAN CORPUSCULAR VOLUME 76.4 FL (78-98); MEAN PLATELET VOLUME 7.2 FL (7.4-10.4); MONOCYTES # (AUTO) 0.2 X10'3 (0-0.9); MONOCYTES % (AUTO) 2.3 % (2-12); NEUTROPHILS # (AUTO) 8.3 X10'3 (1.8-7.7); NEUTROPHILS % (AUTO) 92.5 % (42-75); PLATELET COUNT 421 X10'3 (140-440); RED BLOOD COUNT 3.77 X10'6 (4.20-5.60); RED CELL DISTRIBUTION WIDTH 18.2 % (11.5-14.5)
[2023-04-10 07:35] LABS: HEMOGLOBIN A1C 6.3 % (4.5-6.2)
[2023-04-10 07:39] LABS: ALANINE AMINOTRANSFERASE 15 U/L (12-78); ALBUMIN 2.9 G/DL (3.4-5.0); ALBUMIN/GLOBULIN RATIO 0.8 (1.1-1.5); ALKALINE PHOSPHATASE 106 IU/L (46-116); ANION GAP 3 (8-16); ASPARTATE AMINO TRANSFERASE 6 U/L (10-37); BILIRUBIN,TOTAL 0.2 MG/DL (0.1-1.0); BLOOD UREA NITROGEN 36 MG/DL (7-18); BUN/CREATININE RATIO 43.9 (10.0-20.0); CHLORIDE 101 MMOL/L (99-107); CREATININE 0.82 MG/DL (0.40-0.90); GLUCOSE 175 MG/DL (70-104); MAGNESIUM 2.3 MG/DL (1.5-2.4); POTASSIUM 3.9 MMOL/L (3.5-5.1); SODIUM 140 MMOL/L (135-145); TOTAL CARBON DIOXIDE 36.3 MMOL/L (24-32); TOTAL PROTEIN 6.6 G/DL (6.4-8.2); eCRCL 52 ML/MIN; eGFR 69 ML/MIN
[2023-04-10 08:02] LABS: % IRON SATURATION 6 % (11-46); IRON 20 UG/DL (49-151); TOTAL IRON BINDING CAPACITY 329 UG/DL (259-388)
[2023-04-10] MEDS: CefTRIAXone/D5W-Rocephin 1gm 50 ML IV SCH (08:45)
[2023-04-10] MEDS: insulin Lispro (HumaLOG) vial - multi-dose SQ SCH (10:11)
[2023-04-11] VITALS (13 sets, daily range): BP systolic 134–150; BP diastolic 63–78; PULSE 58–89; RESP 15–26; TEMP 96.3–97.8; O2SAT 93–100
[2023-04-11 06:28] LABS: BASOPHILS % (AUTO) 0.1 % (0-1); EOSINOPHILS % (AUTO) 0 % (0-6); HEMATOCRIT 31.2 % (35.0-45.0); HEMOGLOBIN 9.8 g/dl (12.0-16.0); LYMPHOCYTES # (AUTO) 0.5 X10'3 (1.1-4.8); LYMPHOCYTES % (AUTO) 5.5 % (21-51); MEAN CORPUSCULAR HEMOGLOBIN 24.2 PG (27.0-31.0); MEAN CORPUSCULAR HGB CONC 31.4 g/dL (33.0-36.5); MEAN CORPUSCULAR VOLUME 76.9 FL (78-98); MEAN PLATELET VOLUME 7.2 FL (7.4-10.4); MONOCYTES # (AUTO) 0.3 X10'3 (0-0.9); MONOCYTES % (AUTO) 3.7 % (2-12); NEUTROPHILS # (AUTO) 7.7 X10'3 (1.8-7.7); NEUTROPHILS % (AUTO) 90.7 % (42-75); PLATELET COUNT 436 X10'3 (140-440); RED BLOOD COUNT 4.06 X10'6 (4.20-5.60); RED CELL DISTRIBUTION WIDTH 17.7 % (11.5-14.5); WHITE BLOOD COUNT 8.4 X10'3 (4.5-11.0)
[2023-04-11 06:41] LABS: ALANINE AMINOTRANSFERASE 16 U/L (12-78); ALBUMIN 2.8 G/DL (3.4-5.0); ALBUMIN/GLOBULIN RATIO 0.8 (1.1-1.5); ALKALINE PHOSPHATASE 97 IU/L (46-116); ANION GAP 3 (8-16); ASPARTATE AMINO TRANSFERASE 9 U/L (10-37); BILIRUBIN,TOTAL 0.2 MG/DL (0.1-1.0); BLOOD UREA NITROGEN 46 MG/DL (7-18); BUN/CREATININE RATIO 66.7 (10.0-20.0); CALCIUM 8.4 MG/DL (8.5-10.1); CHLORIDE 100 MMOL/L (99-107); CREATININE 0.69 MG/DL (0.40-0.90); GLUCOSE 176 MG/DL (70-104); MAGNESIUM 2.4 MG/DL (1.5-2.4); POTASSIUM 4.1 MMOL/L (3.5-5.1); SODIUM 142 MMOL/L (135-145); TOTAL CARBON DIOXIDE 39.3 MMOL/L (24-32); TOTAL PROTEIN 6.5 G/DL (6.4-8.2); eCRCL 62 ML/MIN; eGFR 84 ML/MIN
[2023-04-11] MEDS: iron sucrose complex injection 200 MG in normal saline 100ml IV soln 100 ML IV SCH (09:06)
[2023-04-11] MEDS: LORazepam 0.5 MG tablet PO PRN (18:04)
[2023-04-12] VITALS (15 sets, daily range): BP systolic 121–163; BP diastolic 65–71; PULSE 50–86; RESP 15–30; TEMP 97.1–98.9; O2SAT 93–99
[2023-04-12 06:07] LABS: BASOPHILS % (AUTO) 0.2 % (0-1); EOSINOPHILS % (AUTO) 0 % (0-6); HEMATOCRIT 32.7 % (35.0-45.0); HEMOGLOBIN 10.1 g/dl (12.0-16.0); LYMPHOCYTES # (AUTO) 0.6 X10'3 (1.1-4.8); LYMPHOCYTES % (AUTO) 6.9 % (21-51); MEAN CORPUSCULAR HEMOGLOBIN 23.4 PG (27.0-31.0); MEAN CORPUSCULAR HGB CONC 30.7 g/dL (33.0-36.5); MEAN CORPUSCULAR VOLUME 76.2 FL (78-98); MEAN PLATELET VOLUME 7.2 FL (7.4-10.4); MONOCYTES # (AUTO) 0.5 X10'3 (0-0.9); MONOCYTES % (AUTO) 5.5 % (2-12); NEUTROPHILS # (AUTO) 7.7 X10'3 (1.8-7.7); NEUTROPHILS % (AUTO) 87.4 % (42-75); PLATELET COUNT 435 X10'3 (140-440); RED BLOOD COUNT 4.29 X10'6 (4.20-5.60); RED CELL DISTRIBUTION WIDTH 17.9 % (11.5-14.5); WHITE BLOOD COUNT 8.8 X10'3 (4.5-11.0)
[2023-04-12 06:15] LABS: ALANINE AMINOTRANSFERASE 19 U/L (12-78); ALBUMIN 2.8 G/DL (3.4-5.0); ALBUMIN/GLOBULIN RATIO 0.8 (1.1-1.5); ALKALINE PHOSPHATASE 86 IU/L (46-116); ANION GAP 6 (8-16); ASPARTATE AMINO TRANSFERASE 9 U/L (10-37); BILIRUBIN,TOTAL 0.2 MG/DL (0.1-1.0); BLOOD UREA NITROGEN 46 MG/DL (7-18); BUN/CREATININE RATIO 66.7 (10.0-20.0); CHLORIDE 101 MMOL/L (99-107); CREATININE 0.69 MG/DL (0.40-0.90); GLUCOSE 156 MG/DL (70-104); MAGNESIUM 2.4 MG/DL (1.5-2.4); POTASSIUM 4.1 MMOL/L (3.5-5.1); SODIUM 144 MMOL/L (135-145); TOTAL CARBON DIOXIDE 36.9 MMOL/L (24-32); TOTAL PROTEIN 6.3 G/DL (6.4-8.2); eCRCL 62 ML/MIN; eGFR 84 ML/MIN
[2023-04-12] MEDS ORDERED: hydrALAZINE 20mg/ml inj. IV PRN (18:30)
[2023-04-13] VITALS (11 sets, daily range): BP systolic 144–153; BP diastolic 61–77; PULSE 59–100; RESP 18–24; TEMP 97.4–98; O2SAT 95–99
[2023-04-13 06:24] LABS: BASOPHILS % (AUTO) 0.2 % (0-1); EOSINOPHILS % (AUTO) 0 % (0-6); HEMATOCRIT 34.5 % (35.0-45.0); HEMOGLOBIN 10.9 g/dl (12.0-16.0); LYMPHOCYTES # (AUTO) 0.5 X10'3 (1.1-4.8); LYMPHOCYTES % (AUTO) 5.2 % (21-51); MEAN CORPUSCULAR HEMOGLOBIN 23.9 PG (27.0-31.0); MEAN CORPUSCULAR HGB CONC 31.5 g/dL (33.0-36.5); MEAN CORPUSCULAR VOLUME 75.9 FL (78-98); MEAN PLATELET VOLUME 7.4 FL (7.4-10.4); MONOCYTES # (AUTO) 0.4 X10'3 (0-0.9); MONOCYTES % (AUTO) 3.8 % (2-12); NEUTROPHILS # (AUTO) 9.3 X10'3 (1.8-7.7); NEUTROPHILS % (AUTO) 90.8 % (42-75); PLATELET COUNT 472 X10'3 (140-440); RED BLOOD COUNT 4.54 X10'6 (4.20-5.60); WHITE BLOOD COUNT 10.2 X10'3 (4.5-11.0)
[2023-04-13 06:29] LABS: ALANINE AMINOTRANSFERASE 21 U/L (12-78); ALBUMIN 3.1 G/DL (3.4-5.0); ALBUMIN/GLOBULIN RATIO 0.8 (1.1-1.5); ALKALINE PHOSPHATASE 94 IU/L (46-116); ANION GAP 3 (8-16); ASPARTATE AMINO TRANSFERASE 8 U/L (10-37); BILIRUBIN,TOTAL 0.3 MG/DL (0.1-1.0); BLOOD UREA NITROGEN 41 MG/DL (7-18); BUN/CREATININE RATIO 59.4 (10.0-20.0); CALCIUM 8.4 MG/DL (8.5-10.1); CHLORIDE 98 MMOL/L (99-107); CREATININE 0.69 MG/DL (0.40-0.90); GLUCOSE 165 MG/DL (70-104); MAGNESIUM 2.5 MG/DL (1.5-2.4); POTASSIUM 4.1 MMOL/L (3.5-5.1); SODIUM 138 MMOL/L (135-145); TOTAL PROTEIN 6.9 G/DL (6.4-8.2); eCRCL 62 ML/MIN; eGFR 84 ML/MIN
[2023-04-13] MEDS: albuterol 2.5 MG/3 ML nebule NEB PRN (07:36)
== END 2023-04-13 17:05 | DRG 291 ==
LOC: ER 13:37 → ED HOLD 17:24 → PCU 3S 04-10 03:00
PROVIDERS: ADMIT Family Medicine; ATTEND Family Medicine
PROC: 5A0935A Assistance with Respiratory Ventilation, Less than 24 Consecutive Hours, High Flow/Velocity Cannula (ICD-10-PCS; principal; 2023-04-09)
PROC: 5A0935A Assistance with Respiratory Ventilation, Less than 24 Consecutive Hours, High Flow/Velocity Cannula (ICD-10-PCS; 2023-04-10)
PROC: 5A09357 Assistance with Respiratory Ventilation, Less than 24 Consecutive Hours, Continuous Positive Airway Pressure (ICD-10-PCS; 2023-04-10)
PROC: 5A09357 Assistance with Respiratory Ventilation, Less than 24 Consecutive Hours, Continuous Positive Airway Pressure (ICD-10-PCS; 2023-04-11)
PROC: 5A09357 Assistance with Respiratory Ventilation, Less than 24 Consecutive Hours, Continuous Positive Airway Pressure (ICD-10-PCS; 2023-04-12)
PROC: 5A09357 Assistance with Respiratory Ventilation, Less than 24 Consecutive Hours, Continuous Positive Airway Pressure (ICD-10-PCS; 2023-04-13)
DX: I11.0 Hypertensive heart disease with heart failure (principal); I50.33 Acute on chronic diastolic (congestive) heart failure; J96.20 Acute and chronic respiratory failure, unspecified whether with hypoxia or hypercapnia; N17.9 Acute kidney failure, unspecified; I31.39 Other pericardial effusion (noninflammatory); J43.9 Emphysema, unspecified; I48.0 Paroxysmal atrial fibrillation; F41.9 Anxiety disorder, unspecified; E78.00 Pure hypercholesterolemia, unspecified; I42.9 Cardiomyopathy, unspecified; E11.9 Type 2 diabetes mellitus without complications; D50.9 Iron deficiency anemia, unspecified; I25.10 Atherosclerotic heart disease of native coronary artery without angina pectoris; Z88.1 Allergy status to other antibiotic agents; Z88.5 Allergy status to narcotic agent; Z88.0 Allergy status to penicillin; Z79.4 Long term (current) use of insulin; Z79.899 Other long term (current) drug therapy; Z90.710 Acquired absence of both cervix and uterus; Z90.49 Acquired absence of other specified parts of digestive tract
CPT/HCPCS: 36415; 36600; 71045; 80048; 80053; 81003; 82803; 82948; 83036; 83540; 83550; 83735; 83880; 84484; 85008; 85018; 85025; 87081; 93005; 93306; 94640; 94660; 94760; 97161; 97530; 99285; A4620; A7015; G0378; J0696; J1644; J1756; J1815; J1940; J2930; J3490; J7040